=== PATIENT | female | born 1970 | race Caucasian/White ===

== ENCOUNTER 2020-06-03 08:24 | Outpatient (REF) | payer OTHER, SELFPAY | END 2020-06-03 08:25 | disposition home or self-care (01) | LOC: HO.LAB 08:24 | PROVIDERS: PCP Internal Medicine; Visit Provider Internal Medicine | DX: Z20.828 Contact with and (suspected) exposure to other viral communicable diseases (principal) | CPT/HCPCS: 87635 ==

== ENCOUNTER 2020-06-23 15:31 | Outpatient (REF) | payer OTHER, SELFPAY ==
--- NOTE | 2020-06-23 15:33 | MM_ITS ---
EXAMINATION: MM SCREENING DIGITAL BREAST TOMOSYNTHESIS, BILATERAL CLINICAL INFORMATION: Screening. Asymptomatic. The lifetime risk of breast cancer based on the Tyrer-Cuzick Model is 12.4%. COMPARISON: Mammography: 02/04/2019 and studies dating back to 06/20/2016. TECHNIQUE: Digital breast tomosynthesis is performed in both the craniocaudal and mediolateral oblique views along with computer-aided detection (CAD). Synthesized 2D images are generated from the tomosynthesis. FINDINGS: The breasts are heterogeneously dense, which may obscure small masses (ACR BI-RADS breast composition Category c). There is a stable parenchymal pattern of the right breast without new abnormal dominant mass or suspicious grouping of microcalcifications. Within the deep upper outer aspect of the left breast, there is a developing region of architectural distortion lying approximately 6 cm from the nipple. MM/MM tomosynthesis screening BI IMPRESSION: Region of developing architectural distortion deep upper outer aspect of the left breast for which spot compression views and possible ultrasound are recommended. ASSESSMENT: BI-RADS 0: Incomplete - Need Additional Imaging Evaluation RECOMMENDATION: 1. Additional views of the left breast. 2. Targeted ultrasound if warranted after review of the additional views. 3. Radiology department staff will contact the patient for additional imaging. This patient's information was entered into a reminder system with a target due date for their next mammogram.
== END 2020-06-23 15:32 | disposition home or self-care (01) ==
LOC: HO.MAMMO 15:31
PROVIDERS: Visit Provider Internal Medicine
DX: Z12.31 Encounter for screening mammogram for malignant neoplasm of breast (principal)
CPT/HCPCS: 77063; 77067

== ENCOUNTER 2020-06-30 15:04 | Outpatient (REF) | payer OTHER, SELFPAY ==
--- NOTE | 2020-06-30 15:09 | MM_ITS ---
EXAMINATION: MM DIAGNOSTIC DIGITAL, LEFT CLINICAL INFORMATION: Call back for density at left breast upper outer aspect. COMPARISON: Mammography: 06/23/2020 and studies dating back to 06/20/2016. TECHNIQUE: Digital mammography is performed in the following views: Exaggerated craniocaudal and mediolateral oblique views of the left breast. FINDINGS: The breasts are heterogeneously dense, which may obscure small masses (ACR BI-RADS breast composition Category c). There is a persistent region of architectural distortion within the upper outer aspect of the left breast approximately 6 cm from the nipple. This measures approximately 1.3 cm in diameter. A radial scar or malignancy cannot be excluded. Ultrasound of the left breast upper outer aspect and the axilla was then performed with no abnormal cystic or solid mass identified and no region of distal sound shadowing identified. Stereotactic core biopsy would be recommended since no correlate lesion on ultrasound is identified. If patient is of high risk then MRI could be considered. Results are discussed with the patient at time of visit. Breast center patient navigator will call referring provider's office with the above recommendation. MM/MM added views LT IMPRESSION: Persistence of region of architectural distortion within the upper outer aspect of the left breast for which stereotactic core biopsy is recommended since no ultrasound correlate was appreciated. ASSESSMENT: BI-RADS 4: Suspicious RECOMMENDATION: Stereotactic core biopsy left breast. This patient's information was entered into a reminder system with a target due date for their next mammogram.
--- NOTE | 2020-06-30 15:09 | US_ITS ---
EXAMINATION: US DIAGNOSTIC ULTRASOUND BREAST, LEFT CLINICAL INFORMATION: Region of architectural distortion deep upper outer aspect of the left breast.. COMPARISON: Mammography of same day and studies dating back to June 20, 2016. TECHNIQUE: Ultrasound of the breast is performed with real-time hernández scale imaging and color Doppler. FINDINGS: Ultrasound of the left breast upper outer aspect and the axilla was then performed with no abnormal cystic or solid mass identified and no region of distal sound shadowing identified. Stereotactic core biopsy would be recommended since no correlate lesion on ultrasound is identified. If patient is of high risk then MRI could be considered. Results are discussed with the patient at time of visit. Breast center patient navigator will call referring provider's office with the above recommendation. US/US breast LT limited IMPRESSION: Persistence of region of architectural distortion within the upper outer aspect of the left breast for which stereotactic core biopsy is recommended since no ultrasound correlate was appreciated. ASSESSMENT: BI-RADS 4: Suspicious RECOMMENDATION: Stereotactic core biopsy left breast.
== END 2020-06-30 15:05 | disposition home or self-care (01) ==
LOC: HO.MAMMO 15:04
PROVIDERS: PCP Internal Medicine; Visit Provider Internal Medicine
DX: R92.8 Other abnormal and inconclusive findings on diagnostic imaging of breast (principal)
CPT/HCPCS: 76642; 77065

== ENCOUNTER → 2020-07-06 14:42 | Outpatient (BNVA) | payer OTHER, SELFPAY | PROVIDERS: PCP Internal Medicine; Referring Provider Internal Medicine; Visit Provider Surgery | DX: Z76.89 Persons encountering health services in other specified circumstances (principal) ==

== ENCOUNTER 2020-07-09 07:53 | Outpatient (REF) | payer OTHER, SELFPAY ==
--- NOTE | 2020-07-09 07:57 | MM_ITS ---
EXAMINATION: STEREOTACTIC TOMOSYNTHESIS-GUIDED VACUUM-ASSISTED BREAST BIOPSY, LEFT SPECIMEN RADIOGRAPH, LEFT POST PROCEDURE DIGITAL MAMMOGRAM, LEFT CLINICAL INFORMATION: Region of architectural distortion deep upper outer aspect of the left breast. No ultrasound correlate. COMPARISON: June 30, 2020 and studies dating back to June 20, 2016. TECHNIQUE/PROCEDURE: Informed consent was obtained from the patient after discussion of the benefits, risks, and alternatives to biopsy today. Patient appeared to understand. Gave opportunity for questions. Patient signed consent form. BIOPSY TABLE: [employer]one Biopsy System. LESION: Region of architectural distortion upper outer aspect left breast. LOCAL ANESTHESIA: 8 mL 1% lidocaine; 20 mL 1% lidocaine with epinephrine. DERMATOTOMY: Single skin yanci dermatotomy performed. NEEDLE: [employer] 9-gauge vacuum assisted core biopsy device. APPROACH: Lateral. TARGETING: Digital breast tomosynthesis used for targeting. CORES: 13. CLIP: [employer] Barrel-shaped marker. SPECIMEN RADIOGRAPH: Specimen radiograph is taken in separate room using digital mammography. There are noted to be a few calcifications within some of the samples which were then segregated out. POST PROCEDURE UNILATERAL DIGITAL MAMMOGRAM: The post biopsy mammogram is performed in separate room using separate digital mammography equipment from the biopsy procedure. Exaggerated craniocaudal and 90 degree mediolateral views are obtained. The breasts are heterogeneously dense, which may obscure small masses (breast composition category: c). The clip marker is in position. No gross hematoma. The patient tolerated the procedure well. No immediate complications. Home instructions reviewed with the patient. Final pathology results are pending. MM/MM stereotactic biopsy LT IMPRESSION: 1. Digital tomosynthesis-guided core biopsy left breast with clip placement. 2. Specimen radiograph taken and post procedure mammogram. There is satisfactory positioning of the biopsy clip. 3. Final pathology results pending. An addendum report will be issued.
== END 2020-07-09 07:54 | disposition home or self-care (01) ==
LOC: HO.MAMMO 07:53
PROVIDERS: PCP Internal Medicine; Visit Provider Surgery
DX: R92.8 Other abnormal and inconclusive findings on diagnostic imaging of breast (principal)
CPT/HCPCS: 19283; 88305; A4648

== ENCOUNTER 2020-08-04 06:48 | Day surgery (SDC) | payer OTHER, SELFPAY ==
[2020-07-30 09:35] VITALS: BMI 22.3
--- NOTE | 2020-08-03 12:15 | HO.ANESPROP2 ---
Documented by User: Yoselin Perez 08/03/20 12:16 HPI - Anesthesia Eval Consult details Narrative: 49yo F for Breast Biopsy Needle Localization, LEFT PMFSH Past Medical History Medical History (Updated 08/04/20 @ 07:59 by Jackelin Banks) Breast lesion on mammography History of cervical cancer History of endometriosis History of osteopenia PONV (postoperative nausea and vomiting) Postmenopausal Family History Family History Maternal Grandmother History of breast cancer, Onset Age: 70 Maternal Grandfather No problems noted. Surgical History Surgical History History of colposcopy History of exploratory laparotomy Social History Social History Are you a primary client care representative to a significant other at home: No Do you presently have visiting nurse or other home services: No Smoking Status: Never smoker Use of substances other than those prescribed or required for medical reasons: No Have you been hit, kicked, punched, or otherwise hurt by someone within the past year? If so, by whom?: No Advance Directives: No Advance Directives Information Provided: No Advance Directives on File: No Recently lost weight without trying: No Meds Allergies Allergy/AdvReac Type Severity Reaction Status Date / Time No Known Allergies Allergy Verified 07/06/20 15:26 Home Medications Medication Instructions Recorded Confirmed Type multivitamin,yp-zqlklbrx-OJ capsule 1 cap PO DAILY 07/06/20 07/30/20 History calcium 500 mg PO DAILY 07/30/20 07/30/20 History Exam Exam Date and Time: August 03, 2020 1215 Height,Weight and Vital Signs: Height 5 ft 4 in Weight 58.967 kg Assessment and Plan Assessment Anesthesia Assessment: Chart Reviewed Documented by User: Jackelin Banks 08/04/20 08:00 PMFSH Past Medical History Medical History (Updated 08/04/20 @ 07:59 by Jackelin Banks) Breast lesion on mammography History of cervical cancer History of endometriosis History of osteopenia PONV (postoperative nausea and vomiting) Postmenopausal Family History Family History Maternal Grandmother History of breast cancer, Onset Age: 70 Maternal Grandfather No problems noted. Family history of problems with anesthesia: No Surgical History Surgical History History of colposcopy History of exploratory laparotomy History of Problems with Anesthesia: Yes (PONV) Social History Social History Are you a primary client care representative to a significant other at home: No Do you presently have visiting nurse or other home services: No Smoking Status: Never smoker Use of substances other than those prescribed or required for medical reasons: No Have you been hit, kicked, punched, or otherwise hurt by someone within the past year? If so, by whom?: No Advance Directives: No Advance Directives Information Provided: No Advance Directives on File: No Recently lost weight without trying: No Meds Allergies Allergy/AdvReac Type Severity Reaction Status Date / Time No Known Allergies Allergy Verified 07/06/20 15:26 Home Medications Medication Instructions Recorded Confirmed Type multivitamin,qd-ujoipxzs-NR capsule 1 cap PO DAILY 07/06/20 07/30/20 History calcium 500 mg PO DAILY 07/30/20 07/30/20 History Exam Height,Weight and Vital Signs: Vital Signs Temp Pulse Resp BP Pulse Ox 08/04/20 07:11 97.3 F 78 18 127/75 100 Airway Mallampati Class: I TM Dist: >3cm Neck ROM: Full Loose/Missing/Broken Teeth: No (Bonded frint) Heart: RRR Lungs: CTAB Assessment and Plan Assessment Anesthesia Assessment: Anesthesia Plan Discussed and Chart Reviewed Final Anesthetic Review NPO: Yes ASA Class: I Final Preanesthetic Review: No Changes in Pt Med Stat, Meds/Allgs Chart Reviewed, Consent Obtained/Reviewed and Anes Risks/Benef Reviewed Patient Risk: Low Procedure Risk: Low Anesthetic Plan Anesthetic Plan: GA Disposition: Standard PACU
[2020-08-04] VITALS (8 sets, daily range): BP systolic 116–132; BP diastolic 63–75; PULSE 54–78; RESP 12–18; TEMP 36.3–36.7; O2SAT 99–100
--- NOTE | 2020-08-04 06:52 | MM_ITS ---
EXAMINATION: MM MAMMOGRAM GUIDED NEEDLE LOCALIZATION BREAST, LEFT MM NEEDLE LOCALIZATION SPECIMEN FROM THE LEFT BREAST CLINICAL INFORMATION: The pathology result from left breast biopsy is radial scar. Excision anticipated. Wire localization requested. COMPARISON: Previous studies were reviewed. TECHNIQUE NEEDLE LOC: Proper informed consent is obtained from the patient after discussion of the procedure, potential risks and complications, and alternatives including declining the procedure today. Patient was given an opportunity for questions. The patient appeared to understand. The patient consented to the procedure and signed the consent form. GUIDANCE: Digital mammography. APPROACH: Lateral Medial. TARGET: Tissue marker. ANESTHESIA: lidocaine 1%: 5 mL. LOCALIZATION MARKER: [place] [employer]. The skin is prepped and local anesthesia administered. The needle is positioned and position assessed with mammography. The wire is hooked into position. [place] needle protector placed. The patient tolerated the procedure well and had no immediate complication. TECHNIQUE SPECIMEN RADIOGRAPH: Imaging of the excised specimen is performed using digital mammography in 1 view. FINDINGS SPECIMEN RADIOGRAPH: The specimen shows the needle and hookwire are present. The biopsy marker clip is present. No definite calcifications. Results were called to Dr. Bailey Mckeon in the operating room at the time of imaging by Dr. Mandujano. MM/MM needle loc LT IMPRESSION: 1. No immediate complication following post left breast needle localization with wire hooked into position. 2. Post operative specimen radiograph obtained.
[2020-08-04] MEDS: Lactated Ringers 1,000 ML 100 ML IVCONT (07:10)
--- NOTE | 2020-08-04 07:24 | MHC.SHP ---
Pre-Procedural Eval Section A The patient is an INPATIENT: No Changes since office visit: Yes Patient answered all questions; No Cold of Flu in the past 2 weeks, No New Medical Problems and No Changes in Medication The History & Physical has been completed within 30 days and I have reviewed it.: Yes Section B Chief Complaint: Breast lesion on mammography (radial scar) Allergies: Allergies Allergy/AdvReac Type Severity Reaction Status Date / Time No Known Allergies Allergy Verified 07/06/20 15:26 Plan Patient has been examined and remains a candidate for the planned procedure
--- NOTE | 2020-08-04 08:17 | PC.NURSE ---
pt to [facility]
[2020-08-04] MEDS: ceFAZolin Sodium/Dextrose,Iso 2 GM/50 ML PIGGYBACK IV (08:18)
[2020-08-04] MEDS: Scopolamine 1.5 MG PATCH.TD.3 TRANSDERMA (08:18)
--- NOTE | 2020-08-04 11:15 | W.PM.OPN ---
Operative Note Operative Note Date of Service: 08/04/20 Narrative: Preoperative diagnosis: Radial scar left breast Postoperative diagnosis: Same. Procedure: left breast biopsy with needle localization Label Rewinder: Raven Justin PA-C Anesthesia: General, laryngeal mask Estimated blood loss: 10 cc Specimen: left breast tissue Other findings: Re-x-ray of excised tissue revealed that the clip was contained within the specimen Indications: This is a 49-year-old female with a finding of architectural distortion on mammograms. Stereotactic biopsy revealed a radial sclerosing lesion and excision is planned for further evaluation. Procedure in detail: Patient in the supine position after placement of a localizing needle and wire and after induction of adequate general anesthesia, time-out procedure was performed. 2 g of cefazolin were infused for antibiotic prophylaxis. The left breast and localizing needle and exposed wire were prepped with ChloraPrep and were draped sterilely. Incision line was marked on the skin in a transverse fashion and approximately 03:00 o'clock laterally extending through the needle insertion site. Skin and subcutaneous tissues were infiltrated with local anesthetic. Deeper breast tissues were also infiltrated with local anesthetic. Transverse incision was made through the needle insertion site was carried into the subcutaneous tissues. Bleeding was controlled using the electrosurgical pencil. Skin flaps were raised circumferentially. The tissue surrounding the localizing needle and wire was then excised circumferentially. In the process, a hematoma cavity was entered. This was located slightly inferiorly and anteriorly. The entire cavity was excised. Once the specimen was mobilized along the anterior, superior and inferior aspect, the anterior aspect was marked with a looped suture. Remaining attachments were then divided and additional marking stitches were placed. The specimen was sent for re-x-ray which confirmed that the biopsy clip was contained within the specimen. The wound was copiously irrigated with saline solution and was inspected for bleeding. Bleeding was controlled using the electrosurgical pencil. The wound was again irrigated and inspected for bleeding. No further bleeding was seen. Additional local anesthetic infiltration was carried out. The wound was then closed with interrupted deep and superficial subcutaneous sutures of 3-0 Polysorb. Skin was closed using a running subcuticular suture of 4-0 Polysorb. Steri-Strips dry sterile dressings were applied. She tolerated the procedure well and was transported to the recovery room in stable condition. There were no immediate complications. Sponge and sharp counts were correct.
[2020-08-04] MEDS: Acetaminophen 325 MG TABLET 650 MG PO (11:46)
--- NOTE | 2020-08-04 12:56 | HO.POSTANES ---
Post Anesthesia Evaluation Post Anesthesia Evaluation Vital Signs: Vital Signs Temp Pulse Resp BP Pulse Ox 08/04/20 12:10 98.1 F 56 116/64 100 08/04/20 11:55 57 123/63 99 08/04/20 11:40 55 16 132/68 100 08/04/20 11:25 61 18 127/67 100 08/04/20 11:20 54 16 131/68 100 08/04/20 11:15 60 16 116/68 100 08/04/20 11:10 98.1 F 68 12 100 08/04/20 07:11 97.3 F 78 18 127/75 100 Anesthesia: General LMA Mental Status: Awake Pain Control: Satisfactory Nausea/Vomiting: None Hydration: Adequate Anesthesia-Related Issues: No Anes. Related Issues
== END 2020-08-04 12:35 | disposition home or self-care (01) ==
PROVIDERS: PCP Internal Medicine; Visit Provider Surgery
DX: N60.22 Fibroadenosis of left breast (principal); N64.89 Other specified disorders of breast; Z85.41 Personal history of malignant neoplasm of cervix uteri; M85.80 Other specified disorders of bone density and structure, unspecified site
CPT/HCPCS: 19125; 19281; 88307; 88329; A4648; J0690; J1100; J2250; J2405; J3010

== ENCOUNTER 2021-01-25 14:21 | Outpatient (REF) | payer OTHER, SELFPAY ==
--- NOTE | ~2021-01-25 | MM_ITS ---
EXAMINATION: MM DIAGNOSTIC DIGITAL BREAST TOMOSYNTHESIS, LEFT CLINICAL INFORMATION: History left upper outer quadrant radial scar on stereotactic biopsy 07/09/2020, status post open surgical biopsy 08/04/2020. First imaging left breast since surgery. COMPARISON: Mammography: 06/23/2020, 06/30/2020, 07/09/2020, 08/04/2020, 02/04/2019 TECHNIQUE: Digital breast tomosynthesis is performed in both the craniocaudal and mediolateral oblique views along with computer-aided detection (CAD). Synthesized 2D images are generated from the tomosynthesis. Additional magnification left CC and magnification left ML views are obtained. FINDINGS: The breasts are heterogeneously dense, which may obscure small masses (ACR BI-RADS breast composition Category c). Breast tissue composition borders on average fibroglandular. There are postsurgical changes consistent with the excisional biopsy upper outer quadrant. There is no interval mass or suspicious architectural changes or abnormal calcifications. A few punctate calcifications are again seen mid central 9:00 position similar to prior studies. The axilla and skin contours are unremarkable. Results are discussed with the patient at time of visit. MM/MM tomosynthesis diagnostic LT IMPRESSION: No mammographic evidence of malignancy. Expected postsurgical changes. ASSESSMENT: BI-RADS 2: Benign RECOMMENDATION: Routine annual mammography screening. This patient's information was entered into a reminder system with a target due date for their next mammogram.
== END 2021-01-25 14:22 | disposition home or self-care (01) ==
LOC: HO.MAMMO 14:21
PROVIDERS: PCP Internal Medicine; Visit Provider Surgery
DX: R92.8 Other abnormal and inconclusive findings on diagnostic imaging of breast (principal)
CPT/HCPCS: 77061; 77065

== ENCOUNTER 2021-07-06 14:31 | Outpatient (REF) | payer OTHER, SELFPAY ==
--- NOTE | ~2021-07-06 | MM_ITS ---
EXAMINATION: MM SCREENING DIGITAL BREAST TOMOSYNTHESIS, BILATERAL CLINICAL INFORMATION: Screening. Asymptomatic. Prior history radial scar upper outer left breast on stereotactic biopsy 07/09/2020, status post open surgical biopsy 08/04/2020 (biopsy site changes, columnar cell changes and usual ductal hyperplasia; no residual radial scar, no atypia or malignancy). The lifetime risk of breast cancer based on the Tyrer-Cuzick Model is 11%. COMPARISON: Mammography: 01/25/2021, 08/04/2020, 07/09/2020, 06/30/2020, 06/23/2020, 02/04/2019 TECHNIQUE: Digital breast tomosynthesis is performed in both the craniocaudal and mediolateral oblique views along with computer-aided detection (CAD). Synthesized 2D images are generated from the tomosynthesis. FINDINGS: The breasts are heterogeneously dense, which may obscure small masses (ACR BI-RADS breast composition Category c). There are no significant masses, abnormal calcifications, or other abnormalities. No developing density. No significant change. MM/MM tomosynthesis screening BI IMPRESSION: No mammographic evidence of malignancy. ASSESSMENT: BI-RADS 2: Benign RECOMMENDATION: Routine annual mammography screening. This patient's information was entered into a reminder system with a target due date for their next mammogram.
== END 2021-07-06 14:32 | disposition home or self-care (01) ==
LOC: HO.MAMMO 14:31
PROVIDERS: PCP Internal Medicine; Visit Provider Internal Medicine
DX: Z12.31 Encounter for screening mammogram for malignant neoplasm of breast (principal)
CPT/HCPCS: 77063; 77067

== ENCOUNTER 2021-10-03 06:48 | Outpatient (REF) | payer OTHER, SELFPAY ==
[2021-10-03 06:58] LABS: MANUAL DIFF FLAG NO
[2021-10-03 07:26] LABS: Basophils Percent Auto 0.5 % (0-2); Eosinophils Absolute Auto 0.1 X10*3/uL (0.0-0.4); Eosinophils Percent Auto 2.3 % (0-4); Hemoglobin 12.7 g/dl (12.0-16.0); Imm Gran Abs Auto 0.03 X10*3/uL (0.00-0.03); Imm Gran Pct Auto 0.5 % (0.0-0.4); Lymphocytes Absolute Auto 1.9 X10*3/uL (1.2-4.9); Lymphocytes Percent Auto 31.8 % (20-40); Mean Corpuscular HGB Conc 32.6 g/dl (31.0-35.0); Mean Corpuscular Hemoglobin 30.4 pg (27.0-33.0); Mean Corpuscular Volume 93.3 fL (80.0-98.0); Mean Platelet Volume 9.3 fL (9.4-12.3); Monocytes Absolute Auto 0.6 X10*3/uL (0.1-1.2); Monocytes Percent Auto 10.4 % (2-11); Neutrophils Absolute Auto 3.3 x10*3/uL (2.0-8.3); Neutrophils Percent Auto 54.5 % (45-73); Platelet Count 338 X10*3/uL (160-400); Red Blood Count 4.18 X10*6/uL (4.20-5.50); Red Cell Distribution Width 12.9 % (11.0-16.0); White Blood Count 6.1 X10*3/uL (4.8-10.8)
[2021-10-03 08:06] LABS: Alanine Aminotransferase 12 U/L (0-31); Albumin Level 4.3 g/dL (3.5-5.0); Alkaline Phosphatase 97 U/L (39-117); Anion Gap 10 (12-20); Aspartate Amino Transferase 20 U/L (5-31); Bilirubin Total 0.9 mg/dL (0.0-1.0); Blood Urea Nitrogen 21 mg/dL (9-16); Calcium 9.7 mg/dL (8.4-10.2); Carbon Dioxide 27 mmol/L (22-29); Chloride 108 mmol/L (96-108); Cholesterol 200 mg/dL; Estimated Glomerular Filt Rate > 60; Glucose Fasting 88 mg/dL (60-99); HDL Cholesterol 59 mg/dL; LDL Cholesterol Calculated 114 mg/dl; Sodium 141 mmol/L (135-145); Triglycerides 139 mg/dL
== END 2021-10-03 06:49 | disposition home or self-care (01) ==
LOC: HO.LAB 06:48
PROVIDERS: PCP Internal Medicine; Visit Provider Internal Medicine
DX: Z00.01 Encounter for general adult medical examination with abnormal findings (principal); N95.1 Menopausal and female climacteric states
CPT/HCPCS: 36415; 80053; 80061; 84443; 85025

== ENCOUNTER → 2021-11-15 14:29 | Outpatient (REF) | payer OTHER, SELFPAY ==
--- NOTE | 2021-11-15 14:33 | HM_ITS ---
* Total monitoring time 5 days and 23 hours. * Underlying rhythm is sinus. Average rate 77/Min. Range 43 to 145/Min. * No atrial fibrillation or flutter or AV blocks or pauses. * Rare supraventricular ectopy with minimal burden. * Rare ventricular ectopy with minimal burden. * No patient events. MTDD
== END ==
LOC: HO.CARD 14:29
PROVIDERS: Visit Provider Internal Medicine Cardiovascular Disease
DX: R00.2 Palpitations (principal)
CPT/HCPCS: 93242

== ENCOUNTER 2022-07-12 15:11 | Outpatient (REF) | payer OTHER, SELFPAY ==
--- NOTE | ~2022-07-12 | MM_ITS ---
EXAMINATION: MM SCREENING DIGITAL BREAST TOMOSYNTHESIS, BILATERAL CLINICAL INFORMATION: Screening. Asymptomatic. History left radial scar stereotactic biopsy 07/09/2020, status post excision 08/04/2020. Due for yearly. The lifetime risk of breast cancer based on the Tyrer-Cuzick Model is 12%. COMPARISON: Mammography: 07/06/2021, 01/25/2021, 08/04/2020, 07/09/2020, 06/30/2020, 06/23/2020, 02/04/2019 TECHNIQUE: Digital breast tomosynthesis is performed in both the craniocaudal and mediolateral oblique views along with computer-aided detection (CAD). Synthesized 2D images are generated from the tomosynthesis. FINDINGS: There are scattered areas of fibroglandular density (ACR BI-RADS breast composition Category b). Breast tissue composition borders on average fibroglandular. There are no significant masses, abnormal calcifications, or other abnormalities. There is no interval architectural abnormality or developing density. The axilla are unremarkable. No significant changes. MM/MM tomosynthesis screening BI IMPRESSION: No mammographic evidence of malignancy. ASSESSMENT: BI-RADS 1: Negative RECOMMENDATION: Routine annual mammography screening. This patient's information was entered into a reminder system with a target due date for their next mammogram.
== END 2022-07-12 15:12 | disposition home or self-care (01) ==
LOC: HO.MAMMO 15:11
PROVIDERS: Visit Provider Internal Medicine
DX: Z12.31 Encounter for screening mammogram for malignant neoplasm of breast (principal)
CPT/HCPCS: 77063; 77067

== ENCOUNTER 2023-02-22 10:48 | Day surgery (SDC) | payer OTHER, SELFPAY ==
--- NOTE | 2023-02-20 14:48 | P.CONAN_ITS ---
Documented by User: Yoselin Perez NP 02/20/23 14:49 HPI - Anesthesia Eval Consult details Narrative: 52yo F for Colonoscopy PMFSH Active Problems Active Problems: All Active Problems (Updated 11/09/21 @ 08:22 by Mireya Kuhn MD) Colon cancer screening (Acute) Encounter for general adult medical examination with abnormal findings (Acute) Hot flash, menopausal (Acute) Menopause (Acute) Postmenopausal (Acute) Breast lesion on mammography (Acute) Past Medical History Medical History (Updated 11/09/21 @ 08:22 by Mireya Kuhn MD) Breast lesion on mammography History of cervical cancer History of endometriosis History of osteopenia Palpitations PONV (postoperative nausea and vomiting) Postmenopausal Family History Family History Maternal Grandmother History of breast cancer, Onset Age: 70 Maternal Grandfather No problems noted. Other Substance use disorder Family history of problems with anesthesia: No Surgical History Surgical History History of colposcopy History of exploratory laparotomy History of Problems with Anesthesia: Yes (PONV) Social History Social History Housing: House Are you a primary rn transitional care to a significant other at home: No Do you presently have visiting nurse or other home services: No Patient Tobacco Use Status: Never used Tobacco Use of substances other than those prescribed or required for medical reasons: Yes Substance Use Frequency: Occasionally Advance Directives: No Advance Directives Information Provided: Yes Recently lost weight without trying: No Current occupational status: employed Meds Allergies Allergy/AdvReac Type Severity Reaction Status Date / Time No Known Allergies Allergy Verified 09/20/21 14:15 Exam Exam Date and Time: February 20, 2023 949 Assessment and Plan Assessment Anesthesia Assessment: Chart Reviewed Final Anesthetic Review Family History of Problems with Anesthesia: No History of Problems with Anesthesia: Yes (PONV) Documented by User: Ellyn Bess MD 02/22/23 12:03 HPI - Anesthesia Eval Consult details Narrative: 52yo F for Colonoscopy screening ho pvc's cardiac rios negative PMFSH Past Medical History Medical History (Updated 11/09/21 @ 08:22 by Mireya Kuhn MD) Breast lesion on mammography History of cervical cancer History of endometriosis History of osteopenia Palpitations PONV (postoperative nausea and vomiting) Postmenopausal Family History Family History Maternal Grandmother History of breast cancer, Onset Age: 70 Maternal Grandfather No problems noted. Other Substance use disorder Surgical History Surgical History History of colposcopy History of exploratory laparotomy Social History Social History Housing: House Are you a primary rn transitional care to a significant other at home: No Do you presently have visiting nurse or other home services: No Patient Tobacco Use Status: Never used Tobacco Use of substances other than those prescribed or required for medical reasons: Yes Substance Use Frequency: Occasionally Advance Directives: No Advance Directives Information Provided: Yes Recently lost weight without trying: No Current occupational status: employed Meds Allergies Allergy/AdvReac Type Severity Reaction Status Date / Time No Known Allergies Allergy Verified 09/20/21 14:15 Exam Airway Mallampati Class: I TM Dist: >3cm Neck ROM: Full Heart: rr Lungs: cts Assessment and Plan Assessment Anesthesia Assessment: Anesthesia Plan Discussed Final Anesthetic Review NPO: Yes ASA Class: I Final Preanesthetic Review: No Changes in Pt Med Stat, Meds/Allgs Chart Reviewed, Consent Obtained/Reviewed and Anes Risks/Benef Reviewed Patient Risk: Low Procedure Risk: Low Anesthetic Plan Anesthetic Plan: MAC: and Agree w/ Assess. and Plan Disposition: Standard PACU
[2023-02-22 11:43] VITALS: BP 123/67; PULSE 64; RESP 16; TEMP 36.8; O2SAT 100; BMI 21.8
--- NOTE | 2023-02-22 12:57 | MHC.SHP ---
Pre-Procedural Eval Section A Date of Service: 02/22/23 Section B Chief Complaint: Encounter for screening for malignant neoplasm Relevant Family History (Specify if Yes): No Relevant Social History: None Present Medications: see Short Stay Collaborative assessment Medical History: No relevant PMH History of Previous Operations: No relevant previous surgery Allergies: Allergies Allergy/AdvReac Type Severity Reaction Status Date / Time No Known Allergies Allergy Verified 09/20/21 14:15 Review of Systems Review of Systems Comment: Ten point ROS negative Exam Exam Comment: Gen appear: No acute distress HEENT: no icterus Chest: No overt resp distress Abd: soft, nontender, nondistended Psych: Stable affect, answering questions appropriately Neuro: A/Ox3 noted to move all extremities spontaneously Ext: no peripheral edema Plan Diagnosis/Plan: Unchanged I have reviewed the history and physical and performed a pertinent physical examination on my patient. No changes have occurred unless specified. Time Spent With Patient Time: Total time managing care of this patient today ____ minutes.
--- NOTE | 2023-02-22 12:57 | P.OP_ITS ---
Operative Note Operative Note Date of Service: 02/22/23 Narrative: Procedure: Colonoscopy Indication: Screening Endoscopist: Lacy Santos MD Anesthesia Provider: Latrice Rivera CRNA Anesthesia type: MAC General Anesthesia Instrument: Olympus [id number]-[id number] Consent: Indication, risks vs benefits, and alternatives were discussed with the patient who gave written informed consent to proceed. EKG, pulse, pulse oximetry and blood pressure were monitored throughout the procedure. Please see anesthesia flowsheet. Procedure: The patient was brought to the procedure room and placed in the left lateral decubitus position. IV medications were administered by the anesthesia provider in attendance. A digital rectal exam was performed which was normal. A distal attachment cap was affixed to the tip of the scope and the colonoscope was then inserted through the anus and advanced through the colon to the cecum at 75 cm,and terminal ileum. Mucosa was carefully examined under high definition white light as the instrument was slowly withdrawn in a retrograde panoramic fashion. Retroflexion was performed in rectum. The procedure was not difficult. There were no immediate obvious complications. The quality of the prep was BBPS: 3+3+3 = excellent Withdrawal time 8 minutes. Limitations: No limitations. Findings: Mucosa: Normal to cecum and terminal ileum. Protruding lesions: * Medium internal hemorrhoids without stigmata of recent bleeding. Excavated lesions: * Multiple small and medium mouthed diverticula of left sided colon. Impression: 1. Normal colon and terminal ileum mucosa 2. Internal hemorrhoids 3. Diverticulosis Recommendations: - Repeat colonoscopy in 10 years for asymptomatic colon cancer screening - Increase fiber intake
[2023-02-22 13:36] VITALS: BP 103/50; PULSE 57; RESP 16; TEMP 36.4; O2SAT 99
[2023-02-22 13:51] VITALS: BP 130/66; PULSE 60; RESP 16; O2SAT 100
[2023-02-22 14:06] VITALS: BP 133/62; PULSE 54; RESP 16; TEMP 36.3; O2SAT 100
== END 2023-02-22 14:24 | disposition home or self-care (01) ==
PROVIDERS: PCP Internal Medicine; Visit Provider Internal Medicine
PROC: 0DJD8ZZ Inspection of Lower Intestinal Tract, Via Natural or Artificial Opening Endoscopic (ICD-10-PCS; CPT 45378; principal; 2023-02-22 12:40)
DX: Z12.11 Encounter for screening for malignant neoplasm of colon (principal); K57.30 Diverticulosis of large intestine without perforation or abscess without bleeding; K64.8 Other hemorrhoids
CPT/HCPCS: 45378; J1100; J2250; J2405

== ENCOUNTER 2023-07-06 14:26 | Outpatient (AMB) | payer OTHER, SELFPAY ==
--- NOTE | 2023-07-06 14:34 | MHC.PC.OV ---
Vital Signs 07/06/23 14:35 Height 5 ft 4 in Weight 131 lb 8 oz BMI 22.6 BP 100/60 Blood Pressure Location Rt brachial Position Sitting Pulse 68 Pulse Source Pulse Oximeter Pulse Oximetry (%) 99 Oxygen Delivery Method Room Air Intake Visit Reasons: annual PE Allergies No Known Allergies Allergy (Verified 07/06/23 14:36) Medication List - Last Reconciled 07/06/23 by Mireya Kuhn MD omeprazole 20 mg PO DAILY Tobacco use date assessed: 07/06/23 Dental Screening Dental Screen Date: 07/06/23 Did you have a dental visit in the last 12 months?: Yes Did you have a dental problem in the last 6 months where you did not have access to dental care?: No Was dental information given to patient?: Patient has dentist HPI annual PE HPI Details Patient is 52-year-old female came in for physical examination Patient had colonoscopy in summer of this year by Dr. Santos [facility] she will have next 1 in 10 years Mammogram appointment coming [facility] Patient will also book appointment with her OBGYN. Continued to have palpitations off and on I have added TSH 2 her lab She will be seeing Dr. Herrera in August for re-evaluation Patient had Holter monitor last year which showed some PVCs PFSH Medical History Palpitations Postmenopausal PONV (postoperative nausea and vomiting) History of cervical cancer History of endometriosis History of osteopenia Breast lesion on mammography Surgical History History of exploratory laparotomy History of colposcopy Family History Maternal Grandmother History of breast cancer, Onset Age: 70 Maternal Grandfather No problems noted. Other Substance use disorder Social History Housing: House Are you a primary ambulatory care nurse to a significant other at home: No Do you presently have visiting nurse or other home services: No Patient Tobacco Use Status: Never used Tobacco e-Cigarette/Vaping Use: Never Used Current occupational status: employed Cognitive needs: No Hearing needs: No Vision needs: No Female Reproductive History Menstrual Age of Menarche: 14 Questionnaire PHQ-9 Over the last 2 weeks, how often have you been bothered by any of the following problems? 1. Little interest or pleasure in doing things: not at all 2. Feeling down, depressed, or hopeless: not at all 3. Trouble falling or staying asleep, or sleeping too much: nearly every day 4. Feeling tired or having little energy: several days 5. Poor appetite or overeating: not at all 6. Feeling bad about yourself - or that you are a failure or have let yourself or your family down: not at all 7. Trouble concentrating on things, such as reading the newspaper or watching television: not at all 8. Moving or speaking so slowly that other people could have noticed. Or the opposite - being so fidgety or restless that you have been moving around a lot more than usual: not at all 9. Thoughts that you would be better off or of hurting yourself in some way: not at all Total score: 4 Depression Screening Interpretation: Negative Depression Screening Done: Yes 09885 - PHQ-9 Billing: Yes Source: Developed by Drs. Sukhdeep Malhotra, Melissa Cifuentes, Stephen Bran and colleagues, with an educational rosendo from [employer]. Thrive Questionnaire Date Thrive assessed: 07/06/23 I am a: Patient What is your living situation today?: I have a steady place to live Within the past 12 months, did the food you bought not last and you didn't have the money to get more?: Never true Within the past 12 months, did you worry whether your food would run out before you got money to buy more?: Never true Do you have trouble paying for medicines?: No Do you have trouble getting transportation to medical appointments?: No Do you have trouble paying your heating and electricity bill?: No Do you have trouble taking care of your child, family member or friend?: No Do you have trouble with day-to-day activities such as bathing, preparing meals, shopping, managing finances, etc.?: No Are you currently unemployed and looking for a job?: No Are you interested in more education?: No Please select the resources that you would like help with: None Currently or been in a relationship where the following occur: no concerns reported AUDIT C Alcohol Use Questionnaire (AUDIT-C) 1. How often do you have a drink containing alcohol?: 2-3 times a week 2. How many drinks containing alcohol do you have on a typical day when you are drinking?: 3 or 4 3. How often do you have six or more drinks on one occasion?: Never Total Score: 4 Score Reviewed/Action Taken: No RAISA-7 AMB Questionnaire RAISA-7 Date RAISA - 7 assessed: 07/06/23 Feeling nervous, anxious, or on edge: 0 = Not at all Not being able to stop or control worryin = Not at all Worrying too much about different things: 0 = Not at all Trouble relaxin = Not at all Being so restless that it is hard to sit still: 0 = Not at all Becoming easily annoyed or irritable: 1 = Several days Feeling afraid as if something awful might happen: 0 = Not at all Total RAISA-7 score (0-4 normal; 5-9 mild; 10-14 moderate; 15-21 severe): 1 Source: Developed by Drs. Sukhdeep Malhotra, Melissa Cifuentes, Stephen Bran and colleagues, with an educational rosendo from [employer]. RAISA-7 Assessment Billing RAISA-7 Assessment Tool: RAISA-7 Assessment 85371 Review of Systems Const Denies chills, Denies fever(s) and Denies headache(s) Eyes Denies blurry vision ENT Denies headache(s), Denies nasal discharge, Denies nasal obstruction, Denies odynophagia and Denies sinus pain Card Denies chest pain at rest and Denies chest pain with activity Resp Denies cough and Denies hemoptysis GI Denies diarrhea, Denies odynophagia, Denies vomiting and Denies hematemesis Reports as per HPI Musc Denies abnormal gait Skin/Breast Reports as per HPI Neuro Denies Neuro-related abnormal movements, Denies Abnormal speech present, Denies abnormal gait, Denies headache(s) and Denies Sensory deficit (Neuro) Psych Denies mood swings and Denies paranoia Endo Reports as per HPI Zbigniew/Lymph Reports as per HPI Aller/Immun Reports as per HPI Physical exam (Primary Care) Vital Signs: Last Vital Signs Pulse 68 07/06/23 14:35 BP 100/60 07/06/23 14:35 Pulse Ox 99 07/06/23 14:35 Oxygen Delivery Method Room Air 07/06/23 14:35 BMI result Body Mass Index 22.6 Tobacco/Smoking Status: Tobacco use Status Tobacco use date assessed 07/06/23 07/06/23 14:39 Patient Tobacco Use Status Never used Tobacco 07/06/23 14:39 e-Cigarette/Vaping Use Never Used 07/06/23 14:39 Depression Screening Interpretation: Negative Thrive Assessment: Date of Thrive Assessment Date Thrive assessed 09/20/21 07/06/23 14:39 Currently or been in a relationship where the following occur: no concerns reported Const General: cooperative, comfortable and no acute distress Orientation/consciousness: patient oriented x3 HENMT Head: Yes normocephalic and Yes atraumatic Eyes General: appearance normal, both eyes and all related structures Pupils: Equal, round and reactive pupils present EOM: EOMs intact bilaterally Neck Neck: Yes supple Thyroid: Thyroid normal Resp Effort & Inspection: normal respiratory effort and able to speak in complete sentences Auscultation: clear to auscultation bilaterally Cardio Heart sounds: S1 normal heart sound present and S2 normal heart sound present GI Palpation (GI): Soft to palpation and nontender Auscultation: normal bowel sounds General: Yes no CVA tenderness Back/Spine/Pelvis Back: no CVA tenderness Skin General skin exam: elasticity normal and turgor normal Neuro General: patient oriented x3 and gait normal Cranial nerves: Yes Equal, round and reactive pupils present Speech: No Abnormal speech present Sensory Exam: No Sensory deficit (Neuro) Coordination: tandem gait normal and Romberg test negative Extrem General: Yes normal exam except as noted and No edema Assessment and Plan Assessment & Plan (1) Encounter for general adult medical examination with abnormal findings: Code(s): Z00.01 - Encounter for general adult medical examination with abnormal findings (2) History of osteopenia: Code(s): Z87.39 - Personal history of other diseases of the musculoskeletal system and connective tissue (3) Palpitations: Code(s): R00.2 - Palpitations Plan Patient is 52-year-old female came in for physical examination Patient had colonoscopy in summer of this year by Dr. Santos [facility] she will have next 1 in 10 years Mammogram appointment coming [facility] Patient will also book appointment with her OBGYN. Continued to have palpitations off and on I have added TSH 2 her lab She will be seeing Dr. Herrera in August for re-evaluation Patient had Holter monitor last year which showed some PVCs Patient declined flu vaccine Breast exam through OBGYN Orders: Orders Complete Blood Count Auto Diff Today N95.1 - Menopausal and female climacteric states, Z00.01 - Encounter for general adult medical examination with abnormal findings, Z87.39 - Personal history of other diseases of the musculoskeletal system and connective tissue Lipid Panel Today N95.1 - Menopausal and female climacteric states, Z00.01 - Encounter for general adult medical examination with abnormal findings, Z87.39 - Personal history of other diseases of the musculoskeletal system and connective tissue TSH reflex Free T4 Today R00.2 - Palpitations Vitamin D 25-OH (D2 and D3) Today Z87.39 - Personal history of other diseases of the musculoskeletal system and connective tissue Comprehensive [place]. Panel Fast Today N95.1 - Menopausal and female climacteric states, Z00.01 - Encounter for general adult medical examination with abnormal findings, Z87.39 - Personal history of other diseases of the musculoskeletal system and connective tissue Coding Level of Care Code Est Pt Prev Care 40-64y(19427) Diagnoses Encounter for general adult medical examination with abnormal findings Z00.01 History of osteopenia Z87.39 Palpitations R00.2 Additional Codes RAISA-7 Assessment Billing - RAISA-7 Assessment Tool: RAISA-7 Assessment 47315 ([id number])
[2023-07-06 14:35] VITALS: BP 100/60; PULSE 68; O2SAT 99; BMI 22.6
== END 2023-07-06 15:45 | disposition home or self-care (01) ==
PROVIDERS: Visit Provider Internal Medicine
DX: Z00.00 Encounter for general adult medical examination without abnormal findings (principal); Z87.39 Personal history of other diseases of the musculoskeletal system and connective tissue; R00.2 Palpitations
CPT/HCPCS: 99396

== ENCOUNTER 2023-07-16 07:05 | Outpatient (REF) | payer OTHER, SELFPAY ==
[2023-07-16 07:21] LABS: MANUAL DIFF FLAG NO
[2023-07-16 07:45] LABS: Basophils Percent Auto 0.5 % (0-2); Eosinophils Absolute Auto 0.1 X10*3/uL (0.0-0.4); Eosinophils Percent Auto 1.6 % (0-4); Hematocrit 40.7 % (37.0-47.0); Hemoglobin 13.5 g/dl (12.0-16.0); Imm Gran Abs Auto 0.02 X10*3/uL (0.00-0.03); Imm Gran Pct Auto 0.3 % (0.0-0.4); Lymphocytes Absolute Auto 1.6 X10*3/uL (1.2-4.9); Lymphocytes Percent Auto 21.7 % (20-40); Mean Corpuscular HGB Conc 33.2 g/dl (31.0-35.0); Mean Corpuscular Hemoglobin 30.8 pg (27.0-33.0); Mean Corpuscular Volume 92.7 fL (80.0-98.0); Monocytes Absolute Auto 0.7 X10*3/uL (0.1-1.2); Monocytes Percent Auto 9.6 % (2-11); Neutrophils Percent Auto 66.3 % (45-73); Platelet Count 407 X10*3/uL (160-400); Red Blood Count 4.39 X10*6/uL (4.20-5.50); White Blood Count 7.6 X10*3/uL (4.8-10.8)
[2023-07-16 08:32] LABS: Alanine Aminotransferase 12 U/L (0-31); Albumin Level 4.6 g/dL (3.5-5.0); Alkaline Phosphatase 130 U/L (39-117); Anion Gap 13 (12-20); Aspartate Amino Transferase 17 U/L (5-31); Bilirubin Total 0.5 mg/dL (0.0-1.0); Blood Urea Nitrogen 21 mg/dL (9-16); Calcium 10.3 mg/dL (8.4-10.2); Carbon Dioxide 27 mmol/L (22-29); Chloride 106 mmol/L (96-108); Cholesterol 194 mg/dL (<200); Estimated Glomerular Filt Rate > 60; Glucose Fasting 100 mg/dL (60-99); HDL Cholesterol 70 mg/dL (>40); LDL Cholesterol Calculated 109 mg/dL (<100); Potassium 5.5 mmol/L (3.3-5.1); Sodium 140 mmol/L (135-145); Total Protein 8.1 g/dL (6.5-8.0); Triglycerides 76 mg/dL (<150)
[2023-07-16 08:51] LABS: TSH reflex Free T4 0.51 uIU/mL (0.32-4.0)
[2023-07-19 14:14] LABS: Vitamin D 25-OH, D2 <4 ng/mL; Vitamin D 25-OH, D3 35 ng/mL; Vitamin D 25-OH, Total 35 ng/mL (30-100)
== END 2023-07-16 07:06 | disposition home or self-care (01) ==
LOC: HO.LAB 07:05
PROVIDERS: PCP Internal Medicine; Visit Provider Internal Medicine
DX: Z00.01 Encounter for general adult medical examination with abnormal findings (principal); N95.1 Menopausal and female climacteric states; R00.2 Palpitations; Z87.39 Personal history of other diseases of the musculoskeletal system and connective tissue
CPT/HCPCS: 36415; 80053; 80061; 82306; 84443; 85025

== ENCOUNTER 2023-07-18 14:54 | Outpatient (REF) | payer OTHER, SELFPAY | END 2023-07-18 14:55 | disposition home or self-care (01) | LOC: HO.MAMMO 14:54 | PROVIDERS: PCP Internal Medicine; Visit Provider Internal Medicine | DX: Z12.31 Encounter for screening mammogram for malignant neoplasm of breast (principal) | CPT/HCPCS: 77063; 77067 ==

== ENCOUNTER → 2023-07-18 15:15 | Outpatient (BNV) | payer OTHER, SELFPAY | PROVIDERS: PCP Internal Medicine; Visit Provider Radiology Diagnostic Radiology | DX: Z12.31 Encounter for screening mammogram for malignant neoplasm of breast (principal) | CPT/HCPCS: 77063; 77067 ==

== ENCOUNTER 2023-07-25 06:28 | Outpatient (REF) | payer OTHER, SELFPAY ==
[2023-07-25 08:10] LABS: Alanine Aminotransferase 10 U/L (0-31); Albumin Level 4.4 g/dL (3.5-5.0); Alkaline Phosphatase 144 U/L (39-117); Anion Gap 13 (12-20); Aspartate Amino Transferase 16 U/L (5-31); Bilirubin Total 0.5 mg/dL (0.0-1.0); Blood Urea Nitrogen 17 mg/dL (9-16); Calcium 9.5 mg/dL (8.4-10.2); Carbon Dioxide 27 mmol/L (22-29); Chloride 103 mmol/L (96-108); Estimated Glomerular Filt Rate > 60; Glucose Random 80 mg/dL (60-115); Potassium 4.2 mmol/L (3.3-5.1); Sodium 139 mmol/L (135-145)
[2023-07-26 06:58] LABS: Lyme Abs Screen <0.90 index
== END 2023-07-25 06:29 | disposition home or self-care (01) ==
LOC: HO.LAB 06:28
PROVIDERS: PCP Internal Medicine; Visit Provider Internal Medicine
DX: M54.2 Cervicalgia (principal); R79.89 Other specified abnormal findings of blood chemistry
CPT/HCPCS: 36415; 80053; 86617; 86618

== ENCOUNTER 2023-07-31 15:05 | Outpatient (AMB) | payer OTHER, SELFPAY ==
[2023-07-31 15:12] VITALS: BP 118/74; PULSE 89; O2SAT 98; BMI 23.7
--- NOTE | 2023-07-31 15:12 | A.OFFPC_ITS ---
Vital Signs 07/31/23 15:12 Height 5 ft 4 in Weight 138 lb 2 oz BMI 23.7 BP 118/74 Blood Pressure Location Rt brachial Position Sitting Pulse 89 Pulse Source Pulse Oximeter Pulse Oximetry (%) 98 Oxygen Delivery Method Room Air Intake Visit Reasons: Throat concerns~ Allergies No Known Allergies Allergy (Verified 07/31/23 15:12) Medication List - Last Reconciled 07/31/23 by Mireya Kuhn MD omeprazole 20 mg PO DAILY sodium polystyrene sulfonate 15 grams PO DAILY Tobacco use date assessed: 07/31/23 Dental Screening Dental Screen Date: 07/31/23 Did you have a dental visit in the last 12 months?: Yes Did you have a dental problem in the last 6 months where you did not have access to dental care?: No Was dental information given to patient?: Patient has dentist HPI Throat concerns~ HPI Details Patient is a 52-year-old female came in today to be evaluated for pain in her neck Patient says that she has been having that since end of June 27 it was the right side and then left side. She took ibuprofen this morning and is feeling better, however it has been few days and it is not resolving. She also had labs done which showed elevated alkaline phosphatase, we repeated it and it got worse We will repeat it again in a month time For her thyroid I have ordered ultrasound, meanwhile patient was instructed to take ibuprofen [id number] t.i.d. with food for a week. On exam she had no enlarged lymph nodes, throat looks benign, and neck is supple PFSH Medical History Palpitations Postmenopausal PONV (postoperative nausea and vomiting) History of cervical cancer History of endometriosis History of osteopenia Breast lesion on mammography Surgical History History of exploratory laparotomy History of colposcopy Family History Maternal Grandmother History of breast cancer, Onset Age: 70 Maternal Grandfather No problems noted. Other Substance use disorder Social History Housing: House Are you a primary hearing healthcare practitioner to a significant other at home: No Do you presently have visiting nurse or other home services: No Patient Tobacco Use Status: Never used Tobacco e-Cigarette/Vaping Use: Never Used Current occupational status: employed Cognitive needs: No Hearing needs: No Vision needs: No Female Reproductive History Menstrual Age of Menarche: 14 Questionnaire Thrive Questionnaire Date Thrive assessed: 07/06/23 AUDIT C Alcohol Use Questionnaire (AUDIT-C) 1. How often do you have a drink containing alcohol?: 2-3 times a week 2. How many drinks containing alcohol do you have on a typical day when you are drinking?: 3 or 4 3. How often do you have six or more drinks on one occasion?: Never Total Score: 4 Score Reviewed/Action Taken: Yes RAISA-7 AMB Questionnaire RAISA-7 Date RAISA - 7 assessed: 07/06/23 Source: Developed by Drs. Sukhdeep Malhotra, Melissa Cifuentes, Stephen Bran and colleagues, with an educational rosendo from [employer]. Review of Systems Const Denies chills and Denies fever(s) ENT Denies epistaxis and Denies nasal discharge Card Denies chest pain Resp Denies chest congestion, Denies cough and Denies hemoptysis GI Denies diarrhea and Denies nausea Skin/Breast Denies rash Neuro Reports no additional complaints Psych Reports no additional complaints Endo Reports no additional complaints Physical exam (Primary Care) Vital Signs: Last Vital Signs Pulse 89 07/31/23 15:12 BP 118/74 07/31/23 15:12 Pulse Ox 98 07/31/23 15:12 Oxygen Delivery Method Room Air 07/31/23 15:12 BMI result Body Mass Index 23.7 Tobacco/Smoking Status: Tobacco use Status Tobacco use date assessed 07/31/23 07/31/23 15:15 Patient Tobacco Use Status Never used Tobacco 07/31/23 15:15 e-Cigarette/Vaping Use Never Used 07/31/23 15:15 Thrive Assessment: Date of Thrive Assessment Date Thrive assessed 07/06/23 07/31/23 15:15 Const General: cooperative, comfortable and no acute distress Orientation/consciousness: patient oriented x3 HENMT Head: Yes normocephalic Neck Other: Slight discomfort to palpation left thyroid lobe, no enlargement, no lymph nodes felt, neck is supple, throat is benign Neck: Yes supple Resp Effort & Inspection: normal respiratory effort, no cough and no stridor Skin General skin exam: turgor normal Neuro General: patient oriented x3, tone normal and moves all extremities Extrem Right lower extremity: no edema Left lower extremity: no edema Assessment and Plan Assessment & Plan (1) Painful thyroid: Code(s): E07.89 - Other specified disorders of thyroid (2) LFT elevation: Code(s): R79.89 - Other specified abnormal findings of blood chemistry Plan Patient is a 52-year-old female came in today to be evaluated for pain in her neck Patient says that she has been having that since end of June 27 it was the right side and then left side. She took ibuprofen this morning and is feeling better, however it has been few days and it is not resolving. She also had labs done which showed elevated alkaline phosphatase, we repeated it and it got worse We will repeat it again in a month time For her thyroid I have ordered ultrasound, meanwhile patient was instructed to take ibuprofen [id number] t.i.d. with food for a week. On exam she had no enlarged lymph nodes, throat looks benign, and neck is supple Orders: Orders US thyroid Today E07.89 - Other specified disorders of thyroid TSH reflex Free T4 Today E07.89 - Other specified disorders of thyroid, R79.89 - Other specified abnormal findings of blood chemistry Liver Panel Today E07.89 - Other specified disorders of thyroid, R79.89 - Other specified abnormal findings of blood chemistry Coding Level of Care Code Est Pt Level 3 (08762) Diagnoses Painful thyroid E07.89 LFT elevation R79.89
== END 2023-07-31 16:56 | disposition home or self-care (01) ==
PROVIDERS: PCP Internal Medicine; Visit Provider Internal Medicine
DX: E07.89 Other specified disorders of thyroid (principal); R79.89 Other specified abnormal findings of blood chemistry
CPT/HCPCS: 99213

== ENCOUNTER 2023-08-06 15:43 | Outpatient (REF) | payer OTHER, SELFPAY ==
--- NOTE | ~2023-08-06 | US_ITS ---
EXAMINATION: US THYROID CLINICAL INFORMATION: Other specified disorders of thyroid. COMPARISON: None available. TECHNIQUE: Linear transducer grayscale and color Doppler examination with attention to the region of the thyroid. FINDINGS: SIZE: Measurements of the thyroid lobes and nodules are given in sagittal, anteroposterior and transverse dimensions respectively. Right Thyroid Lobe: 5.5 x 1.6 x 1.5 cm, volume 6.9 mL. Parenchyma: The gland echotexture is heterogeneous. Thyroid vascularity is increased. Left Thyroid Lobe: 5.0 x 2.5 x 2.2 cm, volume 11.5 mL. Parenchyma: The gland echotexture is heterogeneous. Thyroid vascularity is increased. Isthmus: 0.4 cm in maximum AP dimension. Estimated total number of nodules greater than or equal to 1 cm: 0. Refuge Manager nodules are described as follows: 1. Location: Right mid. Size: 0.8 x 0.8 x 0.9 cm, volume 0.3 mL. Nodule characteristics: Composition: Solid (2). Echogenicity: Very hypoechoic (3). Shape: Not taller than wide (0). Margins: Irregular (2). Echogenic Foci: None (0). ACR TI-RADS total points: 7 ACR TI-RADS category: 5 NODES: Multiple small lymph nodes are identified along the inferior aspects of the bilateral thyroid lobes US/US thyroid IMPRESSION: 1. Right 0.9 cm TR5 thyroid nodule. Recommend follow up ultrasound in one year. 2. Diffusely heterogeneous, hypervascular thyroid gland. 3. Multiple small lymph nodes are identified along the inferior aspects of the bilateral thyroid lobes. ACR TI-RADS RECOMMENDATION REFERENCE: Ultrasound-guided fine-needle aspiration, followup ultrasound, no further follow up. * TR1 (0 point) and TR2 (2 points): No FNA or follow up. * TR3 (3 points): FNA if more than or equal to 2.5 cm in maximum dimension, followup ultrasound in 1, 3 and 5 years if 1.5 to 2.4 cm in maximum dimension. * TR4 (4-6 points): FNA if more than or equal to 1.5 cm in maximum dimension, followup ultrasound in 1, 2, 3 and 5 years if 1 to 1.4 cm in maximum dimension. * TR5 (more than or equal to 7 points): FNA if more than or equal to 1 cm in maximum dimension, followup ultrasound every year for 5 years if 0.5 to 0.9 cm in maximum dimension. * TR3, TR4 or TR5 nodules that are below the size threshold for followup receive no follow up.
== END 2023-08-06 15:44 | disposition home or self-care (01) ==
LOC: HO.US 15:43
PROVIDERS: PCP Internal Medicine; Visit Provider Internal Medicine
DX: E07.89 Other specified disorders of thyroid (principal)
CPT/HCPCS: 76536

== ENCOUNTER 2023-10-03 11:29 | Outpatient (REF) | payer OTHER, SELFPAY ==
[2023-10-03 13:09] LABS: Alanine Aminotransferase 15 U/L (0-31); Albumin Level 4.7 g/dL (3.5-5.0); Alkaline Phosphatase 124 U/L (39-117); Anion Gap 14 (12-20); Aspartate Amino Transferase 21 U/L (5-31); Bilirubin Direct 0.1 mg/dL (0.0-0.5); Bilirubin Total 0.5 mg/dL (0.0-1.0); Blood Urea Nitrogen 17 mg/dL (9-16); Carbon Dioxide 27 mmol/L (22-29); Chloride 104 mmol/L (96-108); Estimated Glomerular Filt Rate > 60; Glucose Random 97 mg/dL (60-115); Potassium 4.5 mmol/L (3.3-5.1); Sodium 140 mmol/L (135-145); Total Protein 8.1 g/dL (6.5-8.0)
[2023-10-03 13:12] LABS: TSH reflex Free T4 1.26 uIU/mL (0.32-4.0)
== END 2023-10-03 11:30 | disposition home or self-care (01) ==
LOC: HO.LAB 11:29
PROVIDERS: PCP Internal Medicine; Visit Provider Internal Medicine
DX: E07.89 Other specified disorders of thyroid (principal); R79.89 Other specified abnormal findings of blood chemistry
CPT/HCPCS: 36415; 80053; 82248; 84443

== ENCOUNTER 2024-02-04 14:13 | Outpatient (REF) | payer OTHER, SELFPAY ==
--- NOTE | ~2024-02-04 | US_ITS ---
EXAMINATION: US THYROID CLINICAL INFORMATION: Thyroid nodule, no personal history of thyroid malignancy. No prior biopsy. COMPARISON: 07/07/2023 TECHNIQUE: Linear transducer grayscale and color Doppler examination with attention to the region of the thyroid. FINDINGS: SIZE: Measurements of the thyroid lobes and nodules are given in sagittal, anteroposterior and transverse dimensions respectively. Right Thyroid Lobe: 4.4 x 1.4 x 1.3 cm, volume 4.2 mL. Parenchyma: The gland echotexture is heterogeneous. Thyroid vascularity is increased. Left Thyroid Lobe: 3.8 x 0.8 x 1.0 cm, volume 1.6 mL. Parenchyma: The gland echotexture is heterogeneous. Thyroid vascularity is increased. Isthmus: 0.1 cm in maximum AP dimension. Estimated total number of nodules greater than or equal to 1 cm: 0. 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 Location: Right mid. Size: 0.6 x 0.4 x 0.5 cm, volume 0.06 mL. Previously not measured.. Nodule characteristics: Composition: Solid (2). Echogenicity: Hypoechoic (2). Shape: Not taller than wide (0). Margins: Ill-defined (0). Echogenic Foci: None (0). ACR TI-RADS total points: 4. ACR TI-RADS category: 4. 2. Previously identified 0.9 cm posterior right midpole thyroid nodule is not appreciated on the current exam. NODES: No lymphadenopathy is seen in the tissue surrounding the thyroid gland. US/US thyroid IMPRESSION: 1. Diffusely heterogeneous, hypervascular thyroid gland. 2. Right 0.6 cm thyroid nodule was not previously measured. 3. Previously identified 0.9 cm posterior right midpole thyroid nodule is not appreciated on the current exam. This study was presented today 02/05/2024 for interpretation. Stat results provided at this time as requested by referring provider. ACR TI-RADS RECOMMENDATION REFERENCE: Ultrasound-guided fine-needle aspiration, followup ultrasound, no further follow up. * TR1 (0 point) and TR2 (2 points): No FNA or follow up. * TR3 (3 points): FNA if more than or equal to 2.5 cm in maximum dimension, followup ultrasound in 1, 3 and 5 years if 1.5 to 2.4 cm in maximum dimension. * TR4 (4-6 points): FNA if more than or equal to 1.5 cm in maximum dimension, followup ultrasound in 1, 2, 3 and 5 years if 1 to 1.4 cm in maximum dimension. * TR5 (more than or equal to 7 points): FNA if more than or equal to 1 cm in maximum dimension, followup ultrasound every year for 5 years if 0.5 to 0.9 cm in maximum dimension. * TR3, TR4 or TR5 nodules that are below the size threshold for followup receive no follow up.
== END 2024-02-04 14:14 | disposition home or self-care (01) ==
LOC: HO.US 14:13
PROVIDERS: PCP Internal Medicine; Visit Provider Internal Medicine
DX: E04.1 Nontoxic single thyroid nodule (principal); E07.89 Other specified disorders of thyroid
CPT/HCPCS: 76536

== ENCOUNTER 2024-04-17 08:12 | Outpatient (REF) | payer OTHER, SELFPAY ==
[2024-04-17 09:36] LABS: TSH reflex Free T4 1.14 uIU/mL (0.32-4.0)
== END 2024-04-17 08:13 | disposition home or self-care (01) ==
LOC: HO.LAB 08:12
PROVIDERS: PCP Internal Medicine; Visit Provider Internal Medicine
DX: E04.1 Nontoxic single thyroid nodule (principal)
CPT/HCPCS: 36415; 84443

== ENCOUNTER 2024-06-10 13:34 | Outpatient (REF) | payer OTHER, SELFPAY ==
--- NOTE | ~2024-06-10 | XR_ITS ---
EXAMINATION: XR HAND LEFT 3 VIEWS CLINICAL INFORMATION: Pain in left hand M79.642. COMPARISON: None TECHNIQUE: PA, lateral, and oblique views of the left hand. FINDINGS: There is flexion of the DIP joint of the index finger on all views. Possible mild arthrosis. Joint space difficult to fully assess given the deformity. Remaining bones joints and soft tissues are unremarkable. . XR/XR hand LT min 3V IMPRESSION: 1. Flexion of the DIP joint of the index finger on all views. Possible mild arthrosis. Electronically signed by: Aly Granda MD 08/12/2024 09:59 AM EST
== END 2024-06-10 13:35 | disposition home or self-care (01) ==
LOC: HO.HOSX 13:34
PROVIDERS: Visit Provider Orthopaedic Surgery
DX: M15.1 Heberden's nodes (with arthropathy) (principal)
CPT/HCPCS: 73130

== ENCOUNTER 2024-06-10 13:54 | Outpatient (AMB) | payer OTHER, SELFPAY ==
--- NOTE | 2024-06-10 14:02 | MHC.OFFVIS ---
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 Patient reports burning pain localized at her DIP joint of left index finger. She was born with a shorter finger, has no recent injury. She has a bump on her DIP that she noticed a year ago that has been growing in size. SHe reports the tip of her index finger is also getting crooked. Denies finger locking, numbness and tingling. 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 Denies any prior injuries or surgeries to the left hand. 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 This has been worsening for ~1 year now. This is worse with activity or when bumping her finger, and improves when at rest. Of note, she says that she was born with this finger being smaller than the other fingers. It is fairly recently that the D IP joint has started to look like it was more prominent, with increased angulation of the distal phalanx radially and volarly. She denies any known injury to her finger as a child. She denies any prior treatment options [facility] Medical History Palpitations Postmenopausal PONV (postoperative nausea and vomiting) History of cervical cancer History of endometriosis History of osteopenia Breast lesion on mammography Surgical History History of exploratory laparotomy History of colposcopy Family History Maternal Grandmother History of breast cancer, Onset Age: 70 Maternal Grandfather No problems noted. 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 Cognitive needs: No Hearing needs: No Vision needs: No Female Reproductive History Menstrual Age of Menarche: 14 Review of Systems Const All systems reviewed & are unremarkable except as noted in HPI and below Physical Exam Vital Signs: BMI result Body Mass Index 22.7 Const General: cooperative, healthy appearing and no acute distress Orientation/consciousness: patient oriented x3 HEENT Head: Yes normocephalic and Yes atraumatic Eyes EOM: EOMs intact bilaterally Resp Effort & Inspection: normal respiratory effort and able to speak in complete sentences Cardio Jugular venous distension: no JVD Skin General skin exam: turgor normal Rashes: no rashes Neuro General: patient oriented x3 Extrem Other: Evaluation of Left Upper Extremity: The patient is alert, oriented, and in no acute distress Neuro: Median, Ulnar, Radial nerves motor and sensory intact and sensation is normal to the tips of all digits Vascular: Cap refill brisk ROM: She can make a fist and extend all her digits No locking or catching Skin: No lacerations or abrasions. General: No Ecchymosis. No Erythema or evidence of infection. Regarding her left index finger: The digit is shorter than the adjacent digits, and this appears to be primarily at the distal phalanx but also perhaps at the middle phalanx. She can make a fist and extend all of her digits including the index finger, though she does have a mallet deformity at the D IP joint. At the D IP joint we see volar and radial deviation of a shortened distal phalanx. The nail appears to be well developed. Radiographs: 3 views of the left hand were taken and viewed by me today in clinic. They show no fractures or dislocations. She has significant index finger DIP joint osteoarthritis with near complete loss of joint space. This is radially deviated with a mallet deformity. She has some mild hyperextension at the PIP joint. Her index finger distal phalanx, and perhaps the middle phalanx, are shorter than her other phalanxes. She says she was born this way. 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 Left index finger DIP joint osteoarthritis I educated her about this condition I discussed operative and non-operative treatment options I think she would benefit from a DIP joint arthrodesis in the future She is hesitant to discuss surgery as she is worried about losing her motion or full function of her index finger She should try to limit or avoid overusing this aspect of her finger when possible. I did explain that this is not something that has to happen now. When she is mostly avoiding the use of the tip of her index finger, I noted that it would likely be better to perform the arthrodesis so that she could use it again. Until then she will let us know. She is happy with the current plan. She can follow up prn Scribed for Faina Pratt MD by Giovanny Ramirez, medical dosimetrist, on 06/10/24 at 2:50 PM, EST. 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
[2024-06-10 14:32] VITALS: BMI 22.7
== END 2024-06-10 15:22 | disposition home or self-care (01) ==
PROVIDERS: PCP Internal Medicine; Visit Provider Orthopaedic Surgery
DX: M15.1 Heberden's nodes (with arthropathy) (principal)
CPT/HCPCS: 99203

== ENCOUNTER 2024-07-22 14:44 | Outpatient (REF) | payer OTHER, SELFPAY ==
--- NOTE | ~2024-07-22 | MM_ITS ---
EXAMINATION: MM SCREENING DIGITAL BREAST TOMOSYNTHESIS, BILATERAL CLINICAL INFORMATION: Screening. Asymptomatic. COMPARISON: Mammography: Comparison is made with available priors TECHNIQUE: Digital breast mammography with tomosynthesis is performed in both the craniocaudal and mediolateral oblique views along with computer-aided detection (CAD). FINDINGS: There are scattered areas of fibroglandular density (ACR BI-RADS breast composition Category b). Left excisional biopsy. There are no significant masses, abnormal calcifications, or other abnormalities. MM/MM tomosynthesis screening BI IMPRESSION: No mammographic evidence of malignancy. ASSESSMENT: BI-RADS BI-RADS 2 - Benign Findings RECOMMENDATION: Routine annual mammography screening. 1 year F/U This examination should not preclude the clinical evaluation of a suspicious palpable abnormality. This patient's information was entered into a reminder system with a target due date for their next mammogram. Electronically signed by: Kim Schulz DO 07/31/2024 01:47 PM [facility]
== END 2024-07-22 14:45 | disposition home or self-care (01) ==
LOC: HO.MAMMO 14:44
PROVIDERS: PCP Internal Medicine; Visit Provider Internal Medicine
DX: Z12.31 Encounter for screening mammogram for malignant neoplasm of breast (principal)
CPT/HCPCS: 77063; 77067

== ENCOUNTER → 2024-07-22 15:45 | Outpatient (BNV) | payer OTHER, SELFPAY | PROVIDERS: PCP Internal Medicine; Visit Provider Internal Medicine | DX: Z12.31 Encounter for screening mammogram for malignant neoplasm of breast (principal) | CPT/HCPCS: 77063; 77067 ==

== ENCOUNTER 2024-08-29 13:54 | Outpatient (REF) | payer OTHER, SELFPAY ==
--- NOTE | ~2024-08-29 | US_ITS ---
EXAMINATION: US THYROID CLINICAL INFORMATION: Thyroid nodules COMPARISON: Ultrasound thyroid 08/06/2023 TECHNIQUE: Linear transducer grayscale and color Doppler examination with attention to the region of the thyroid. FINDINGS: SIZE: Measurements of the thyroid lobes and nodules are given in sagittal, anteroposterior and transverse dimensions respectively. Right Thyroid Lobe: 4.7 x 1.2 x 1.4 cm, volume 4.0 mL. Previous 4.4 x 1.4 x 1.3, volume 4.2 Parenchyma: The gland echotexture is homogeneous. Thyroid vascularity is mildly increased. Left Thyroid Lobe: 3.7 x 0.7 x 1.1 cm, volume 1.5 mL. Previous 3.8 x 0.8 x 1.0, volume 1.6 Parenchyma: The gland echotexture is homogeneous. Thyroid vascularity is mildly increased. Isthmus: 0.1 cm in maximum AP dimension. Estimated total number of nodules greater than or equal to 1 cm: 0. There are no new nodule seen at this time. NODES: No lymphadenopathy is seen in the tissue surrounding the thyroid gland. US/US thyroid IMPRESSION: Homogeneous thyroid gland without nodules. Mild increased vascularity of both lobes. Previously visualized nodule in right lobe have resolved. ACR TI-RADS RECOMMENDATION REFERENCE: Ultrasound-guided fine-needle aspiration, followup ultrasound, no further follow up. * TR1 (0 point) and TR2 (2 points): No FNA or follow up. * TR3 (3 points): FNA if more than or equal to 2.5 cm in maximum dimension, followup ultrasound in 1, 3 and 5 years if 1.5 to 2.4 cm in maximum dimension. * TR4 (4-6 points): FNA if more than or equal to 1.5 cm in maximum dimension, followup ultrasound in 1, 2, 3 and 5 years if 1 to 1.4 cm in maximum dimension. * TR5 (more than or equal to 7 points): FNA if more than or equal to 1 cm in maximum dimension, followup ultrasound every year for 5 years if 0.5 to 0.9 cm in maximum dimension. * TR3, TR4 or TR5 nodules that are below the size threshold for followup receive no follow up. Electronically signed by: Luis Mandujano MD 09/01/2024 07:53 AM [facility]
== END 2024-08-29 13:55 | disposition home or self-care (01) ==
LOC: HO.US 13:54
PROVIDERS: PCP Internal Medicine; Visit Provider Internal Medicine
DX: E04.1 Nontoxic single thyroid nodule (principal)
CPT/HCPCS: 76536

== ENCOUNTER → 2024-08-29 14:05 | Outpatient (BNV) | payer OTHER, SELFPAY | PROVIDERS: PCP Internal Medicine; Visit Provider Radiology Diagnostic Radiology | DX: E04.1 Nontoxic single thyroid nodule (principal) | CPT/HCPCS: 76536 ==

== ENCOUNTER 2024-10-08 14:29 | Outpatient (AMB) | payer OTHER, SELFPAY ==
[2024-10-08 14:37] VITALS: BP 128/78; PULSE 91; RESP 18; O2SAT 97; BMI 22.2
--- NOTE | 2024-10-08 14:37 | MHC.PC.OV ---
Vital Signs 10/08/24 14:37 Height 5 ft 4 in Weight 129 lb 8 oz BMI 22.2 BP 128/78 Blood Pressure Location Rt brachial Position Sitting Respiration 18 Pulse 91 Pulse Source Pulse Oximeter Pulse Oximetry (%) 97 Oxygen Delivery Method Room Air Intake Visit Reasons: Annual PE Allergies No Known Allergies Allergy (Verified 10/08/24 14:38) Medication List - Last Reconciled 10/08/24 by Mireya Kuhn MD omeprazole 20 mg PO DAILY Tobacco use date assessed: 10/08/24 Dental Screening Dental Screen Date: 10/08/24 Did you have a dental visit in the last 12 months?: Yes Did you have a dental problem in the last 6 months where you did not have access to dental care?: No Was dental information given to patient?: Patient has dentist HPI Annual PE HPI Details Physical exam appointment - The patient is a 53-year-old female presenting with loose stool. - Loose stools began approximately four weeks ago, without blood, pain, or associated symptoms like bloating. - Prior work-up for similar issues over a decade ago was negative, though irritable bowel syndrome flare-up was considered. - Initial management included fiber and probiotics, with some improvement noted in stool consistency. - Gas production increased, and stool frequency is now twice daily but with firmer stools. - Symptoms persisted post-upper respiratory infection and vacation. Patient has already discussed with Gastroenterology regarding these symptoms Health Maintenance - Mammogram completed in June of the previous year. - OBGYN visit was completed last year (2017), with the next follow-up advised for 2027. - Recent colonoscopy at age 52, repeated in 10 years. 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 - Labs previously showed elevated liver enzymes necessitating repeat blood work. - Thyroid ultrasound showing increased blood flow but improvement in previous findings. 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 - Resume probiotic intake, considering capsule or yogurt form. - Keep a food diary to identify potential triggers for symptoms. - Ensure follow-up with permanent mold supervisor for annual skin checks. - Complete fasting labs as ordered. Review of Systems - General: No fever no chills - Neurological: No headaches no dizziness - Ear nose throat: No sore throat no hearing difficulty no ear pain - Cardiovascular: No syncope, no chest pain, no palpitations - Gastrointestinal: No nausea vomiting - Endocrine: No polyuria polydipsia no heat intolerance - Genitourinary: No dysuria - Skin: No new complaints Physical Exam General: Cooperative, healthy appearing, comfortable, no acute distress Orientation: Patient oriented x3 Limitations: none Head: Normal to inspection Ears: Within normal limit visually Nose: Normal external nose present Face and sinus: Normal facial exam Eyes: Appearance normal, extraocular movement intact pupils reactive Neck: Normal visual inspection and supple Respiratory: Normal respiratory effort and able to speak in complete sentences. Clear to auscultation, no stridor Breast exam benign Cardiovascular: S1 and S2 GI: Normal to inspection. Soft to palpation and nontender Skin: Turgor normal, no acute findings, keratosis removed previously Neuro: Patient oriented x3, motor sensory intact, balance intact, tandem pass Extremities: Normal to inspection PFSH Medical History Palpitations Postmenopausal PONV (postoperative nausea and vomiting) History of cervical cancer History of endometriosis History of osteopenia Breast lesion on mammography Surgical History History of exploratory laparotomy History of colposcopy Family History Maternal Grandmother History of breast cancer, Onset Age: 70 Maternal Grandfather No problems noted. 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 1. Little interest or pleasure in doing things: not at all 2. Feeling down, depressed, or hopeless: not at all 3. Trouble falling or staying asleep, or sleeping too much: nearly every day 4. Feeling tired or having little energy: several days 5. Poor appetite or overeating: not at all 6. Feeling bad about yourself - or that you are a failure or have let yourself or your family down: not at all 7. Trouble concentrating on things, such as reading the newspaper or watching television: not at all 8. Moving or speaking so slowly that other people could have noticed. Or the opposite - being so fidgety or restless that you have been moving around a lot more than usual: not at all 9. Thoughts that you would be better off or of hurting yourself in some way: not at all Total score: 4 Depression Screening Interpretation: Negative Depression Screening Done: Yes 17650 - PHQ-9 Billing: Yes Source: Developed by Drs. Sukhdeep Malhotra, Melissa Cifuentes, Stephen Bran and colleagues, with an educational rosendo from [employer]. Thrive Questionnaire Date Thrive assessed: 10/08/24 I am a: Patient What is your living situation today?: I have a steady place to live Within the past 12 months, did the food you bought not last and you didn't have the money to get more?: Never true Within the past 12 months, did you worry whether your food would run out before you got money to buy more?: Never true Do you have trouble paying for medicines?: No Do you have trouble getting transportation to medical appointments?: No Do you have trouble paying your heating and electricity bill?: No Do you have trouble taking care of your child, family member or friend?: No Do you have trouble with day-to-day activities such as bathing, preparing meals, shopping, managing finances, etc.?: No Are you currently unemployed and looking for a job?: No Are you interested in more education?: No Please select the resources that you would like help with: None Currently or been in a relationship where the following occur: No concerns reported THRIVE Score: 0 AUDIT C Alcohol Use Questionnaire (AUDIT-C) 1. How often do you have a drink containing alcohol?: Never 3. How often do you have six or more drinks on one occasion?: Never Total Score: 0 Score Reviewed/Action Taken: Yes RAISA-7 AMB Questionnaire RAISA-7 Date RAISA - 7 assessed: 10/08/24 Feeling nervous, anxious, or on edge: 0 = Not at all Not being able to stop or control worryin = Not at all Worrying too much about different things: 0 = Not at all Trouble relaxin = Not at all Being so restless that it is hard to sit still: 0 = Not at all Becoming easily annoyed or irritable: 0 = Not at all Feeling afraid as if something awful might happen: 0 = Not at all Total RAISA-7 score (0-4 normal; 5-9 mild; 10-14 moderate; 15-21 severe): 0 Source: Developed by Drs. Sukhdeep Malhotra, Melissa Cifuentes, Stephen Bran and colleagues, with an educational rosendo from [employer]. RAISA-7 Assessment Billing RAISA-7 Assessment Tool: RAISA-7 Assessment 27756 Physical exam (Primary Care) Vital Signs: Last Vital Signs Pulse 91 10/08/24 14:37 Resp 18 10/08/24 14:37 BP 128/78 10/08/24 14:37 Pulse Ox 97 10/08/24 14:37 Oxygen Delivery Method Room Air 10/08/24 14:37 BMI result Body Mass Index 22.2 Tobacco/Smoking Status: Tobacco use Status Tobacco use date assessed 10/08/24 10/08/24 14:39 Patient Tobacco Use Status Never used Tobacco 10/08/24 14:39 e-Cigarette/Vaping Use Never Used 10/08/24 14:39 PHQ-9: PHQ-9 Score PHQ-9: Total score 4 10/08/24 14:54 Depression Screening Interpretation: Negative Thrive Assessment: Date of Thrive Assessment Date Thrive assessed 10/08/24 10/08/24 14:39 Currently or been in a relationship where the following occur: No concerns reported Coding Level of Care Code Est Pt Prev Care 40-64y(62446) Diagnoses Adult general medical exam Z00.00 LFT elevation R79.89 Bloating R14.0 Additional Codes RAISA-7 Assessment Billing - RAISA-7 Assessment Tool: RAISA-7 Assessment 33178 ([id number]) PHQ-9 - 26376 - PHQ-9 Billing: Yes ([id number]) Assessment & Plan Assessment & Plan (1) Adult general medical exam: Code(s): Z00.00 - Encounter for general adult medical examination without abnormal findings Category: Medical (2) LFT elevation: Code(s): R79.89 - Other specified abnormal findings of blood chemistry Category: Medical (3) Bloating: Code(s): R14.0 - Abdominal distension (gaseous) Category: Medical Plan Physical exam appointment - The patient is a 53-year-old female presenting with loose stool. - Loose stools began approximately four weeks ago, without blood, pain, or associated symptoms like bloating. - Prior work-up for similar issues over a decade ago was negative, though irritable bowel syndrome flare-up was considered. - Initial management included fiber and probiotics, with some improvement noted in stool consistency. - Gas production increased, and stool frequency is now twice daily but with firmer stools. - Symptoms persisted post-upper respiratory infection and vacation. Patient has already discussed with Gastroenterology regarding these symptoms Health Maintenance - Mammogram completed in June of the previous year. - OBGYN visit was completed last year (2017), with the next follow-up advised for 2027. - Recent colonoscopy at age 52, repeated in 10 years. 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 - Labs previously showed elevated liver enzymes necessitating repeat blood work. - Thyroid ultrasound showing increased blood flow but improvement in previous findings. 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 - Resume probiotic intake, considering capsule or yogurt form. - Keep a food diary to identify potential triggers for symptoms. - Ensure follow-up with permanent mold supervisor for annual skin checks. - Complete fasting labs as ordered. Orders: Orders Lipid Panel Today R7.89 - Other specified abnormal findings of blood chemistry, Z00.01 - Encounter for general adult medical examination with abnormal findings TSH reflex Free T4 Today R7.89 - Other specified abnormal findings of blood chemistry, Z00.01 - Encounter for general adult medical examination with abnormal findings UA CC w/rflx Micro + Cult Today R7. - Other specified abnormal findings of blood chemistry, Z00.01 - Encounter for general adult medical examination with abnormal findings Complete Blood Count Auto Diff Today R79.89 - Other specified abnormal findings of blood chemistry, Z00.01 - Encounter for general adult medical examination with abnormal findings Comprehensive [place]. Panel Fast Today R79.89 - Other specified abnormal findings of blood chemistry, Z00.01 - Encounter for general adult medical examination with abnormal findings Vitamin D 25-OH (D2 and D3) Today R79.89 - Other specified abnormal findings of blood chemistry, Z00.01 - Encounter for general adult medical examination with abnormal findings
--- OUTSIDE RECORDS SUMMARY | 2024-10-08 15:47 | XMS_ITS | Clinical Summary ---
[facility] Organization [facility] Address [address] [place] [address] Care Team Providers Care Instructional Materials Director Name Role Phone Brittany Alicea MD Primary Care Provider [phone] Allergies No known active allergies Medications No known medications Active Problems Problem Noted Date Diagnosed Date Routine general medical exam ination at a health care facility 09/23/2018 Awareness of heartbeats 09/23/2018 Endometriosis 09/23/2018 Refraction error 09/23/2018 PVC (premature ventricular contraction) 09/23/19 19 Family History Medical History Relation Name Comments COPD Father No Sig Med Hx Mother Relation Name Status Comments Father Alive Mother Alive Social History Tobacco Use Types Packs/Day Years Used Date Smoking Tobacco: Never Smokeless Tobacco: Never Alcohol Use Standard Drinks/Week Comments Yes 0 (1 standard drink = 0.6 oz pur e alcohol) Social Sex and Gender Information Value Date Recorded Sex Assigned at Not on file Gender Identity Not on file Sexual Orientation Not on file Last Filed Vital Signs Vital Sign Reading Time Taken Comments Blood Pressure 120/70 09/23/2018 4:04 PM EST Pulse 70 09/23/2018 4:04 PM EST Temperature 37 ??C (98.6 ??F) 09/23/2018 4:04 PM EST Respiratory Rate 12 09/23/2018 4:04 PM EST Oxygen Saturation 98% 09/23/2018 4:04 PM EST Inhaled Oxygen Concentration - - Weight 60.1 kg (132 lb 6.4 oz) 09/23/2018 4:04 P M EST Height 165.1 cm (5' 5 ) 09/23/2018 4:04 PM EST Body Mass Index 22.03 09/23/2018 4:04 PM EST Plan of Treatment Health Maintenance Due Date Last Done Comments Hepatitis B Vaccines (1 of 3 - 3-dose series) 1972 Hepatitis C Screening 1972 COVID-19 Vaccine (#1) 04/10/1973 Depression Screening 1984 DTap / Tdap / Td (1 - Tdap) 1991 Cervical Cancer Screening (P ap Smear) 1993 Colon Cancer Screening (Colonoscopy) 2017 Preventative Health Evaluation 09/23/2019 09/23/2018 Breast Cancer Screening (Mammogram) 2022 Shingrix-Zoster Vaccine (1 of 2) 2022 Influenza Vaccine (#1) 2024 Pneumococcal Vaccine Aged Out No long er eligible based on patient's age to complete this topic RSV Ped < 20 months Aged Out No longe r eligible based on patient's age to complete this topic Care Teams Instructional Materials Director Relationship Specialty Start Date End Date Brittany Alicea MD PCP - General Internal Medicine 07/12/15
== END 2024-10-08 14:53 | disposition home or self-care (01) ==
PROVIDERS: PCP Internal Medicine; Visit Provider Internal Medicine
DX: Z00.00 Encounter for general adult medical examination without abnormal findings (principal); R79.89 Other specified abnormal findings of blood chemistry; R14.0 Abdominal distension (gaseous); Z00.01 Encounter for general adult medical examination with abnormal findings

== ENCOUNTER → 2024-10-08 14:29 | Outpatient (BNVA) | payer OTHER, SELFPAY | PROVIDERS: PCP Internal Medicine; Visit Provider Internal Medicine | DX: Z00.00 Encounter for general adult medical examination without abnormal findings (principal); R79.89 Other specified abnormal findings of blood chemistry; R14.0 Abdominal distension (gaseous) | CPT/HCPCS: 96127 ==

== ENCOUNTER 2024-11-03 12:38 | Outpatient (REF) | payer OTHER, SELFPAY ==
[2024-11-03 15:15] LABS: MANUAL DIFF FLAG NO
[2024-11-03 15:55] LABS: Basophils Percent Auto 0.5 % (0-2); Eosinophils Absolute Auto 0.1 X10*3/uL (0.0-0.4); Eosinophils Percent Auto 1.7 % (0-4); Hematocrit 37.4 % (37.0-47.0); Hemoglobin 12.5 g/dl (12.0-16.0); Imm Gran Abs Auto 0.05 X10*3/uL (0.00-0.03); Imm Gran Pct Auto 0.9 % (0.0-0.4); Lymphocytes Absolute Auto 1.8 X10*3/uL (1.2-4.9); Lymphocytes Percent Auto 30.3 % (20-40); Mean Corpuscular HGB Conc 33.4 g/dl (31.0-35.0); Mean Corpuscular Hemoglobin 30.7 pg (27.0-33.0); Mean Corpuscular Volume 91.9 fL (80.0-98.0); Mean Platelet Volume 9.4 fL (9.4-12.3); Monocytes Absolute Auto 0.6 X10*3/uL (0.1-1.2); Monocytes Percent Auto 10.7 % (2-11); Neutrophils Absolute Auto 3.2 x10*3/uL (2.0-8.3); Neutrophils Percent Auto 55.9 % (45-73); Platelet Count 346 X10*3/uL (160-400); Red Blood Count 4.07 X10*6/uL (4.20-5.50); White Blood Count 5.8 X10*3/uL (4.8-10.8)
[2024-11-03 15:57] LABS: Appearance Urine Clear; Color Urine Yellow; Glucose Urine UA Negative (Negative); Leukocyte Esterase Urine Negative (Negative); Nitrite Urine Negative (Negative); Urine Blood Negative (Negative); Urine Ketones Negative (Negative); Urine Protein Negative (Neg-Trace)
[2024-11-03 15:58] LABS: Prothrombin Time 11.9 SEC (10.9-12.4)
[2024-11-03 16:36] LABS: Gamma Glutamyl Transpeptidase 16 U/L (7-33)
--- OUTSIDE RECORDS SUMMARY | 2024-11-03 16:44 | XMS_ITS | Clinical Summary ---
[facility] Address [address] [place] [address] Care Team Providers Care Beauty Counselor Name Role Phone Brittany Alicea MD Primary Care Provider [phone] Allergies No known active allergies Medications No [...] age to complete this topic Care Teams Beauty Counselor Relationship Specialty Start Date End Date Brittany Alicea MD PCP - General Internal Medicine 07/12/15
[2024-11-03 17:25] LABS: Alanine Aminotransferase 28 U/L (0-31); Albumin Level 4.6 g/dL (3.5-5.0); Alkaline Phosphatase 96 U/L (39-117); Anion Gap 12 (12-20); Aspartate Amino Transferase 27 U/L (5-31); Bilirubin Total 0.4 mg/dL (0.0-1.0); Blood Urea Nitrogen 29 mg/dL (9-16); C Reactive Protein < 0.10 mg/dL (< or = 0.50); Calcium 9.6 mg/dL (8.4-10.2); Carbon Dioxide 26 mmol/L (22-29); Chloride 109 mmol/L (96-108); Cholesterol 239 mg/dL (<200); Estimated Glomerular Filt Rate > 60; Glucose Fasting 91 mg/dL (60-99); Glucose Random 91 mg/dL (60-115); HDL Cholesterol 70 mg/dL (>40); LDL Cholesterol Calculated 149 mg/dL (<100); Potassium 3.7 mmol/L (3.3-5.1); Sodium 143 mmol/L (135-145); Total Protein 7.9 g/dL (6.5-8.0); Triglycerides 102 mg/dL (<150)
[2024-11-03 17:30] LABS: TSH reflex Free T4 1.39 uIU/mL (0.32-4.0)
[2024-11-04 07:14] LABS: Immunoglobulin A 200 mg/dL (47-310); Immunoglobulin G 965 mg/dL (600-1640)
[2024-11-04 08:30] LABS: HBS Num1 72.03 mIU/mL (0-7.99); HBc Num1 0.08 S/CO (0.00-0.79); HBsAGNum1 0.28 S/CO (0.00-0.99); HIV AB/AG Nonreactive (Nonreactive); HIV Num 1 0.06 S/CO (0.00-0.99); Hepatitis B Core Antibody Nonreactive (Nonreactive); Hepatitis B Surface Antigen Negative (Negative); ~HepC Num1 0.16 S/CO (0.00-0.79); ~Hepatitis B Surface Antibody REACTIVE (Nonreactive); ~Hepatitis C Antibody Nonreactive (Nonreactive)
[2024-11-04 17:48] LABS: Transglutaminase IgA <1.0 U/mL
[2024-11-05 03:49] LABS: Hepatitis A Antibody IgG Nonreactive (Nonreactive); ~Hepatitis A Antibody IgG 0.27 S/CO (0.00-0.99)
[2024-11-05 10:29] LABS: Mitochondrial Antibodies NEGATIVE (NEGATIVE)
[2024-11-05 23:19] LABS: Smooth Muscle Antibody <20 U (<20)
[2024-11-06 05:58] LABS: Alk.Phos Iso. Macrohepatic 0 % (<=0); Alk.Phos Isoenzymes Bone 40 % (28-66); Alk.Phos Isoenzymes Intest 13 % (1-24); Alk.Phos Isoenzymes Liver 47 % (25-69); Alk.Phos Isoenzymes Placental 0 % (<=0); Alk.Phos Isoenzymes Total 84 U/L (37-153)
[2024-11-06 12:08] LABS: Liver Kidney Microsomal Ab <=20.0 U (<=20.0)
[2024-11-06 23:28] LABS: Vitamin D 25-OH, D2 <4 ng/mL; Vitamin D 25-OH, D3 32 ng/mL; Vitamin D 25-OH, Total 32 ng/mL (30-100)
[2024-11-07 13:33] LABS: Anti Nuclear Antibody Pattern Nuclear, Homogeneous; Anti Nuclear Antibody Screen POSITIVE (NEGATIVE); Anti Nuclear Antibody Titer 1:40 titer
== END 2024-11-03 12:39 | disposition home or self-care (01) ==
LOC: HO.LAB 12:38
PROVIDERS: PCP Internal Medicine; Visit Provider Internal Medicine
DX: Z00.01 Encounter for general adult medical examination with abnormal findings (principal); K52.9 Noninfective gastroenteritis and colitis, unspecified; R74.8 Abnormal levels of other serum enzymes; R79.89 Other specified abnormal findings of blood chemistry; Z79.01 Long term (current) use of anticoagulants
CPT/HCPCS: 36415; 80053; 80061; 81003; 82306; 82784; 82977; 84080; 84443; 85025; 85610; 86015; 86038; 86039; 86140; 86364; 86376; 86381; 86704; 86706; 86708; 86803; 87340; 87389

== ENCOUNTER 2024-11-04 12:40 | Outpatient (REF) | payer OTHER, SELFPAY ==
[2024-11-04 14:34] LABS: CDiff Gene PCR NEGATIVE (Negative)
--- OUTSIDE RECORDS SUMMARY | 2024-11-04 15:11 | XMS_ITS | Clinical Summary ---
Author Organization [facility] Address [address] [place] [address] Care Team Providers Care Education Department Chair Name Role Phone Brittany Alicea MD Primary Care Provider [phone] Allergies No known active allergies Medications No [...] age to complete this topic Care Teams Education Department Chair Relationship Specialty Start Date End Date Brittany Alicea MD PCP - General Internal Medicine 07/12/15
[2024-11-10 23:44] LABS: Fecal Fat Qualitative Abnormal (Normal)
[2024-11-11 19:09] LABS: Calprotectin, Fecal 24 mcg/g
[2024-11-11 20:28] LABS: Pancreatic Elastase-1 >800 mcg/g (>200)
== END 2024-11-04 12:41 | disposition home or self-care (01) ==
LOC: HO.LNP 12:40
PROVIDERS: Visit Provider Internal Medicine
DX: K52.9 Noninfective gastroenteritis and colitis, unspecified (principal); R74.8 Abnormal levels of other serum enzymes
CPT/HCPCS: 82656; 82705; 83993; 87015; 87177; 87209; 87272; 87329; 87493

== ENCOUNTER 2024-11-21 14:41 | Emergency (ER) | payer OTHER, SELFPAY ==
[2024-11-21 14:52] VITALS: BP 136/88; PULSE 86; RESP 18; TEMP 36.8; O2SAT 99; BMI 21.8
--- NOTE | 2024-11-21 15:55 | ED.GENADULT ---
HPI - General Adult General Chief complaint: General Medical Stated complaint: reaction to meds Time Seen by Provider: 11/21/24 15:13 Source: patient Mode of arrival: ambulatory Limitations: no limitations History of Present Illness ED Provider: Froylan Clark [facility] narrative: 54 yold female healthy with pmh of SBOA presents to the ED for skin turning red for the past 2 days while taking bactrim. Patient is on bactrim for SBOA. patient denies redness being itchy, lip swelling, tongue swelling, or dizziness. Patient states having bodyches with the redness. Patient was sent from PCP to rule out Rasta's Gurjitson. Patient denies rash on vagina or sloughing of skin Related Data Home Medications ?Medication ?Instructions ?Recorded ?Confirmed omeprazole 20 mg tablet,delayed 20 mg PO DAILY 07/06/23 10/08/24 release Previous Rx's ?Medication ?Instructions ?Recorded rifaximin 550 mg tablet 550 mg PO TID 14 days #42 tabs 10/29/24 sulfamethoxazole 800 1 tab PO BID 10 days #20 tabs 11/12/24 mg-trimethoprim 160 mg tablet (Bactrim DS) doxycycline hyclate 100 mg capsule 100 mg PO BID 7 days #14 caps 11/21/24 Allergies Allergy/AdvReac Type Severity Reaction Status Date / Time No Known Allergies Allergy Verified 11/21/24 14:56 Review of Systems Review of Systems: red rash Yes all other systems are reviewed and are negative PMF Past Medical History Medical History Palpitations Postmenopausal PONV (postoperative nausea and vomiting) History of cervical cancer History of endometriosis History of osteopenia Breast lesion on mammography Surgical History History of exploratory laparotomy History of colposcopy Family History Family History Maternal Grandmother History of breast cancer, Onset Age: 70 Maternal Grandfather No problems noted. Other Substance use disorder Social History Social History Housing: House Are you a primary care clinician to a significant other at home: No Do you presently have visiting nurse or other home services: No Alcohol intake: current Alcohol intake frequency: a few times a week Patient Tobacco Use Status: Never used Tobacco Smoked in Last 30 Days: No e-Cigarette/Vaping Use: Never Used Use of substances other than those prescribed or required for medical reasons: Yes Substance Use Type: Marijuana Substance Use Frequency: Occasionally Advance Directives: No Advance Directives Information Provided: Yes Patient : No Current occupational status: employed 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 Negative for any lip swelling, tongue swelling, drooling, or uvula swelling. Head: Yes normal to inspection, Yes No palpable skull fracture present, Yes normocephalic and Yes atraumatic Head images: 1. slight redness. negative for lesions, sloughing, warmth, or ecchymosis. 2. slight redness. negative for lesions, sloughing, warmth, or ecchymosis. Eyes General: appearance normal, both eyes and all related structures Visual Capps: normal visual capps by confrontation Alignment and Position: alignment normal Periorbital: periorbital findings normal Eyelids: Yes eyelids normal Conjunctivae: conjunctivae normal Sclerae: sclerae normal Corneas: corneas normal Pupils: Equal, round and reactive pupils present EOM: EOMs intact bilaterally Neck Neck: Yes normal visual inspection, Yes full ROM, Yes no lymphadenopathy, Yes no meningeal signs, Yes trachea midline, Yes supple, No anterior neck swelling and No tender Neck images: 1. red flat rash. no lesions or sloughing of skin Chest Chest palpation & inspection: normal inspection of the chest Chest/axillae images: 1. flat red rash. Negative for any lesions or sloughing. Resp Effort & Inspection: normal respiratory effort and able to speak in complete sentences Auscultation: clear to auscultation bilaterally Cardio Jugular venous distension: no JVD Heart sounds: S1 normal heart sound present and S2 normal heart sound present GI Inspection: Yes normal to inspection Palpation (GI): Soft to palpation, not firm, nontender, no guarding and not rigid General: Yes no CVA tenderness Back/Spine/Pelvis Back: no CVA tenderness and No back tenderness Skin General skin exam: no rashes or lesions noted, elasticity normal and turgor normal Neuro General: patient oriented x3, gait normal, tone normal, moves all extremities, Normal light touch and pain sensation, no meningeal signs, no focal motor deficits, CN's II-XI intact bilaterally and normal sensation to monofilament Cranial nerves: Yes Equal, round and reactive pupils present Extrem General: Yes normal to inspection, Yes full ROM and Yes capillary refill normal Shoulder/upper arm images: 1. Positive for red rash negative. negative for sloughing or lesions 2. Positive for red rash negative. negative for sloughing or lesions Psych Appearance: grossly normal, well kempt and not disheveled Medical Decision Making Medical Decision Making MDM Narrative: 54-year-old female presents to ED for red rash on arms face neck and upper back. Patient denies any rash will lesions in her vaginal or anal area. Patient labs ordered. Dr. Beasley evaluated patient and states patient is not having rasta Poncho Syndrome. 5:02pm: Patient labs was unremarkable. labs do not indicate polymyositits. Dr. Beasley recommend patient being treated as lympe and given doxycycline. He does not recommend given steroids. Patient informed to follow up with primary care provider. NOt suspecting allergic reaction, anyphylaxix, rasta Poncho, cellulitis, lymphagintis, necrotiing fascitits, or any other concerning symptoms. Differential Diagnosis Differential Diagnoses: The differential diagnosis associated with the presentation includes (Polymyositis, hives, Uticaria) Admission/Observation Consideration of admission/observation: Escalation of care including admission/observation considered Lab Data [facility] Lab Attestation statement: I reviewed the patient's lab results. 11/21/24 16:03 11/21/24 16:03 Labs: Lab Results 11/21/24 Range/Units 16:03 WBC 2.9 L (4.8-10.8) X10*3/uL RBC 4.10 L (4.20-5.50) X10*6/uL Hgb 12.6 (12.0-16.0) g/dl Hct 37.4 (37.0-47.0) % MCV 91.2 (80.0-98.0) fL MCH 30.7 (27.0-33.0) pg MCHC 33.7 (31.0-35.0) g/dl RDW 13.2 (11.0-16.0) % Plt Count 210 D (160-400) X10*3/uL MPV 9.5 (9.4-12.3) fL Immature Gran % (Auto) 0.4 (0.0-0.4) % Neut % (Auto) 39.6 L (45-73) % Lymph % (Auto) 33.7 (20-40) % Garrett % (Auto) 16.1 H (2-11) % Eos % (Auto) 9.8 H (0-4) % Baso % (Auto) 0.4 (0-2) % Lymph # (Auto) 1.0 L (1.2-4.9) X10*3/uL Garrett # (Auto) 0.5 (0.1-1.2) X10*3/uL Eos # (Auto) 0.3 (0.0-0.4) X10*3/uL Baso # (Auto) 0.0 (0.0-0.2) X10*3/uL Abs Immat Gran (auto) 0.01 (0.00-0.03) X10*3/uL Absolute Neuts (auto) 1.1 L (2.0-8.3) x10*3/uL Absolute Nucleated RBC 0.000 (0.0-0.012) X10*3/uL Nucleated RBC % (auto) 0.0 (0.0-0.2) /100WBC ESR 11 (0-20) MM/HR Sodium 137 (135-145) mmol/L Potassium 4.2 (3.3-5.1) mmol/L Chloride 105 (96-108) mmol/L Carbon Dioxide 24 (22-29) mmol/L Anion Gap 12 (12-20) BUN 20 H (9-16) mg/dL Creatinine 0.94 (0.5-1.4) mg/dL Estim Creat Clear Calc 60.4 Estimated GFR > 60 Random Glucose 88 (60-115) mg/dL Calcium 9.2 (8.4-10.2) mg/dL Total Bilirubin 0.3 (0.0-1.0) mg/dL AST 42 H (5-31) U/L ALT 32 H (0-31) U/L Alkaline Phosphatase 87 (39-117) U/L Total Creatine Kinase 43 (26-140) U/L C-Reactive Protein 0.46 (< or = 0.50) mg/dL Total Protein 7.3 (6.5-8.0) g/dL Albumin 4.4 (3.5-5.0) g/dL A.phagocytophil DNA PCR NOT DETECTED (NOT DETECTED) Babesia microti DNA PCR NOT DETECTED (NOT DETECTED) Borrelia sp DNA (PCR) NOT DETECTED (NOT DETECTED) Borrelia miyamotoi (PCR) NOT DETECTED (NOT DETECTED) E.chaffeensis DNA (PCR) NOT DETECTED (NOT DETECTED) Monoscreen Negative (Negative) Tick-borne Disease PCR SEE NOTE Independent Historian Clinical information obtained from an independent historian. History obtained from or confirmed by: Other External Record Review External record reviewed: Other Discharge Plan Discharge Clinical Impression: Rash Patient Disposition: Home, Self-Care Instructions: Acute Rash (ED) Additional Instructions: Recommend follow-up with the primary care provider and support services manager. History physical exam does not indicate Rasta Poncho syndrome. Your tick labs are pending. You will be discharged with doxycycline. Stop taking Bactrim. Return to the ED immediately for any worsening rash, sloughing of rash, lip swelling, tongue swelling, sensation of throat swelling, fever, chills, or any other concerning symptoms. Prescriptions: New doxycycline hyclate 100 mg capsule 100 mg PO BID 7 Days Qty: 14 0RF No Action rifaximin 550 mg tablet 550 mg PO TID 14 Days Qty: 42 0RF sulfamethoxazole-trimethoprim [Bactrim DS] 800-160 mg tablet 1 tab PO BID 10 Days Qty: 20 0RF omeprazole 20 mg tablet,delayed release (DR/EC) 20 mg PO DAILY Referrals: Mireya Kuhn MD [Primary Care Provider] - (Acute rash.) Stand Alone Forms: Work/School Release Interventions: ED Discharge Assessment Last Done: 11/21/24 18:39 Discharge Date/Time: 11/21/24 18:41 Print Language: Prydeinig
[2024-11-21 16:12] LABS: MANUAL DIFF FLAG NO
[2024-11-21 16:16] LABS: Basophils Percent Auto 0.4 % (0-2); Eosinophils Absolute Auto 0.3 X10*3/uL (0.0-0.4); Eosinophils Percent Auto 9.8 % (0-4); Hematocrit 37.4 % (37.0-47.0); Hemoglobin 12.6 g/dl (12.0-16.0); Imm Gran Abs Auto 0.01 X10*3/uL (0.00-0.03); Imm Gran Pct Auto 0.4 % (0.0-0.4); Lymphocytes Percent Auto 33.7 % (20-40); Mean Corpuscular HGB Conc 33.7 g/dl (31.0-35.0); Mean Corpuscular Hemoglobin 30.7 pg (27.0-33.0); Mean Corpuscular Volume 91.2 fL (80.0-98.0); Mean Platelet Volume 9.5 fL (9.4-12.3); Monocytes Absolute Auto 0.5 X10*3/uL (0.1-1.2); Monocytes Percent Auto 16.1 % (2-11); Neutrophils Absolute Auto 1.1 x10*3/uL (2.0-8.3); Neutrophils Percent Auto 39.6 % (45-73); Platelet Count 210 X10*3/uL (160-400); Red Cell Distribution Width 13.2 % (11.0-16.0); White Blood Count 2.9 X10*3/uL (4.8-10.8)
[2024-11-21 16:33] LABS: Alanine Aminotransferase 32 U/L (0-31); Albumin Level 4.4 g/dL (3.5-5.0); Anion Gap 12 (12-20); Aspartate Amino Transferase 42 U/L (5-31); Bilirubin Total 0.3 mg/dL (0.0-1.0); Blood Urea Nitrogen 20 mg/dL (9-16); C Reactive Protein 0.46 mg/dL (< or = 0.50); Calcium 9.2 mg/dL (8.4-10.2); Carbon Dioxide 24 mmol/L (22-29); Chloride 105 mmol/L (96-108); Creatinine Clr Calc Pharmacy 60.4; Estimated Glomerular Filt Rate > 60; Glucose Random 88 mg/dL (60-115); Potassium 4.2 mmol/L (3.3-5.1); Sodium 137 mmol/L (135-145); Total Protein 7.3 g/dL (6.5-8.0)
[2024-11-21 16:43] LABS: Monotest Negative (Negative)
[2024-11-21 16:51] LABS: Erythrocyte Sedimentation Rate 11 MM/HR (0-20)
[2024-11-21 16:57] LABS: Alkaline Phosphatase 87 U/L (39-117)
[2024-11-21 17:37] VITALS: BP 123/72; PULSE 74; RESP 16; TEMP 36.8; O2SAT 100
[2024-11-21 18:39] VITALS: BP 123/72; PULSE 74; RESP 16; TEMP 36.8; O2SAT 100
[2024-11-22 18:58] LABS: A. Phagocytphilium DNA,RT-PCR NOT DETECTED (NOT DETECTED); Babesia Microti DNA, RT-PCR NOT DETECTED (NOT DETECTED); Borrelia Miyamotoi,DNA RT-PCR NOT DETECTED (NOT DETECTED); E.Chaffeensis DNA RT-PCR NOT DETECTED (NOT DETECTED); Lyme(Borrelia ssp)DNA RT-PCR NOT DETECTED (NOT DETECTED)
[2024-11-24 21:42] LABS: Lyme Abs Screen <0.90 index
== END 2024-11-21 18:41 | disposition home or self-care (01) ==
PROVIDERS: Physician Assistant; Emergency Provider Emergency Medicine; PCP Internal Medicine
DX: R21 Rash and other nonspecific skin eruption (principal); M79.10 Myalgia, unspecified site; Z79.899 Other long term (current) drug therapy
CPT/HCPCS: 36415; 80053; 82550; 85025; 85652; 86140; 86308; 86617; 86618; 87040; 87468; 87469; 87478; 87484; 87798; 99283; 99284

== ENCOUNTER 2024-11-28 14:03 | Outpatient (REF) | payer OTHER, SELFPAY ==
--- NOTE | ~2024-11-28 | US_ITS ---
CLINICAL HISTORY: R74.8 - Abnormal levels of other serum enzymes US abdomen complete Comparison: None Findings: The visualized pancreas is normal. The aorta and inferior vena cava are normal caliber. The appearance of the liver suggests fatty infiltration without focal lesion. There is no intrahepatic bile duct dilatation. The common duct is 3.0 mm in diameter. The gallbladder is normal. There is no sonographic Moya sign. The main portal vein is antegrade. The right kidney is 10.5 cm in length. The left kidney is 10.9 cm in length. The spleen is normal. No ascites. IMPRESSION: 1. Hepatic steatosis. This document has been electronically signed by: Cosmo Davalos MD on 11/29/2024 08:16:32
--- OUTSIDE RECORDS SUMMARY | 2024-11-28 15:49 | XMS_ITS | Clinical Summary ---
[facility] Organization [facility] Address [address] [place] [address] Care Team Providers Care Developer Analyst Name Role Phone Brittany Alicea MD Primary Care Provider [phone] Allergies No known active allergies Medications No [...] age to complete this topic Care Teams Developer Analyst Relationship Specialty Start Date End Date Brittany Alicea MD PCP - General Internal Medicine 07/12/15
== END 2024-11-28 14:04 | disposition home or self-care (01) ==
LOC: HO.US 14:03
PROVIDERS: PCP Internal Medicine; Visit Provider Internal Medicine
DX: R74.8 Abnormal levels of other serum enzymes (principal)
CPT/HCPCS: 76700

== ENCOUNTER → 2024-11-28 14:04 | Outpatient (BNV) | payer OTHER, SELFPAY | PROVIDERS: PCP Internal Medicine; Visit Provider Specialist | DX: R74.8 Abnormal levels of other serum enzymes (principal) | CPT/HCPCS: 76700 ==

== ENCOUNTER 2024-12-19 14:37 | Outpatient (AMB) | payer OTHER, SELFPAY ==
--- NOTE | 2024-12-19 14:46 | A.OFFVIS_ITS ---
Vital Signs 12/19/24 14:50 Height 5 ft 4 in Weight 126 lb 5.198 oz BMI 21.7 BP 125/69 Blood Pressure Location Lt brachial Position Sitting Pulse 67 Intake Visit Reasons: F/U labs 4 weeks Intake Note: presents in the office as a follow up for her lab work. CC: She states that she is just doing the follow up for her loose stools. She is not having them as bad at they were in Aug and has gotten better the last couple weeks. Venetian Blind Washer Required: No Allergies sulfamethoxazole [From Bactrim] Allergy (Mild, Verified 12/19/24 14:49) flu like symptoms trimethoprim [From Bactrim] Allergy (Mild, Verified 12/19/24 14:49) flu like symptoms HPI Comments Details: 54 y. F with PMH of who is here for new visit for changes in bowel habits. Pt reports intermittent diarrhea since August which got worse after visit to [place]. Has 3 BMs per day durng the day. No night time. With this has increased borborygmi, early satiety and bloating. No trigger foods identified. Tried probotics and yogurt which has not helped as much. Labs reviewed. Elevated ALP noted. No fatigue, joint pains, no pruritus. 12/19/24: Sx better now. Having occ crampy abd pain assoc with soft BM up to 2-3 times a day. Was given trial of bactrim but pt had s/e of flu like sx with concern for SJS. Resolved rapidly with discontinuation of bactrim. Currnetly has 1-2 BMs which are soft. No blood in stool. Assoc with abd cramping which goes away with defecation. Prev was having sx almost daily but now better as above. Labs reviewed, neg for inflammatory or parasitic source. LFTs were checked on Bactrim so suspect drug related. ALP is now normal and ALP fractionation normal as well. [facility] Medical History Palpitations Postmenopausal PONV (postoperative nausea and vomiting) History of cervical cancer History of endometriosis History of osteopenia Breast lesion on mammography Surgical History History of exploratory laparotomy History of colposcopy Family History Maternal Grandmother History of breast cancer, Onset Age: 70 Maternal Grandfather No problems noted. 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 Cognitive needs: No Hearing needs: No Vision needs: No Female Reproductive History Menstrual Age of Menarche: 14 Review of Systems Const All systems reviewed & are unremarkable except as noted in HPI and below Physical Exam Vital Signs: Last Vital Signs Pulse 67 12/19/24 14:50 BP 125/69 12/19/24 14:50 BMI result Body Mass Index 21.7 No apparent distress Nonicteric Abdomen soft, nondistended Alert and oriented x3, normal gait Assessment & Plan Assessment & Plan (1) Chronic diarrhea: Code(s): K52.9 - Noninfective gastroenteritis and colitis, unspecified Category: Medical (2) Bloating: Code(s): R14.0 - Abdominal distension (gaseous) Category: Medical (3) Abdominal cramping: Code(s): R10.9 - Unspecified abdominal pain Category: Medical (4) LFT elevation: Code(s): R79.89 - Other specified abnormal findings of blood chemistry Category: Medical (5) Osteopenia: Code(s): M85.80 - Other specified disorders of bone density and structure, unspecified site Category: Medical Plan 1. 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 However, will proceed with bidirectional scope to r/o enteropathy, seronegative celiac (yoli as pt also with hx of thyroiditis, low Vit D etc), microscopic colitis, new dx of IBD. Plan: - EGD/colo to be booked - PEG prep sent to pharmacy - Pt well versed in colo instructions but handout provided anyway 2. Transaminases likely transient 2/2 bactrim use as were completely normal right beofre starting this med US with fatty liver noted which could be overestimation vs transient appearance due to recent etoH intake over vacation 3. Pt with known osteopenia x many years. Plan: - Repeat dexa - check vit D Follow up after scopes Orders: Orders XR DEXA axial skeleton Today M85.80 - Other specified disorders of bone density and structure, unspecified site Liver Panel Today R79.89 - Other specified abnormal findings of blood chemistry Vitamin D 25-OH Total Today M85.80 - Other specified disorders of bone density and structure, unspecified site Medications: New peg 3350-electrolytes 236-22.74-6.74 -5.86 gram (Golytely) as per split prep instructions, until fecal effluent is clear 240 mL PO Q10M 4,000 mL 0RF colonoscopy Coding Level of Care Code Est Pt Level 4 (79014) Diagnoses Chronic diarrhea K52.9 Bloating R14.0 Abdominal cramping R10.9 LFT elevation R79.89 Osteopenia M85.80
[2024-12-19 14:50] VITALS: BP 125/69; PULSE 67; BMI 21.7
--- OUTSIDE RECORDS SUMMARY | 2024-12-19 15:16 | XMS_ITS | Clinical Summary ---
[facility] Address [address] [place] [address] Care Team Providers Care General Operations Manager Name Role Phone Brittany Alicea MD Primary Care Provider [phone] Allergies No known active allergies Medications No [...] age to complete this topic Care Teams General Operations Manager Relationship Specialty Start Date End Date Brittany Alicea MD PCP - General Internal Medicine 07/12/15
== END 2024-12-19 18:04 ==
LOC: HO.HGI 14:37
PROVIDERS: PCP Internal Medicine; Visit Provider Internal Medicine
DX: K52.9 Noninfective gastroenteritis and colitis, unspecified (principal); R14.0 Abdominal distension (gaseous); R10.9 Unspecified abdominal pain; R79.89 Other specified abnormal findings of blood chemistry; M85.80 Other specified disorders of bone density and structure, unspecified site
CPT/HCPCS: 99214

== ENCOUNTER 2024-12-24 06:51 | Outpatient (REF) | payer OTHER, SELFPAY ==
[2024-12-24 07:52] LABS: Alanine Aminotransferase 29 U/L (0-31); Albumin Level 4.6 g/dL (3.5-5.0); Alkaline Phosphatase 104 U/L (39-117); Aspartate Amino Transferase 29 U/L (5-31); Bilirubin Direct 0.2 mg/dL (0.0-0.5); Bilirubin Total 0.6 mg/dL (0.0-1.0); Total Protein 7.4 g/dL (6.5-8.0)
== END 2024-12-24 06:52 | disposition home or self-care (01) ==
LOC: HO.LAB 06:51
PROVIDERS: PCP Internal Medicine; Visit Provider Internal Medicine
DX: M85.80 Other specified disorders of bone density and structure, unspecified site (principal); R79.89 Other specified abnormal findings of blood chemistry
CPT/HCPCS: 36415; 80076; 82306

== ENCOUNTER 2025-02-06 09:28 | Day surgery (SDC) | payer OTHER, SELFPAY ==
[2025-02-04 14:55] VITALS: BMI 21.7
[2025-02-06 09:51] VITALS: BP 132/57; PULSE 62; RESP 16; TEMP 36.4; O2SAT 100
[2025-02-06] MEDS: Lactated Ringers 1,000 ML 100 ML IVCONT (09:55)
--- NOTE | 2025-02-06 10:06 | HO.ANESPROP2 ---
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 (Acute) Cervical lymphadenopathy (Acute) Thyroid nodule (Acute) Thyromegaly (Acute) Painful thyroid (Acute) Neck pain (Acute) LFT elevation (Acute) Serum potassium elevated (Acute) Colon cancer screening (Acute) Encounter for general adult medical examination with abnormal findings (Acute) Hot flash, menopausal (Acute) Menopause (Acute) Breast lesion on mammography (Acute) Palpitations (Acute) History of osteopenia (Acute) Postmenopausal (Acute) Past Medical History Medical History PAC (premature atrial contraction) PVC (premature ventricular contraction) Viral thyroiditis Palpitations Postmenopausal PONV (postoperative nausea and vomiting) History of cervical cancer History of endometriosis History of osteopenia Family History Family History Maternal Grandmother History of breast cancer, Onset Age: 70 Maternal Grandfather No problems noted. Other Substance use disorder Family history of problems with anesthesia: No Surgical History Surgical History (Updated 02/06/25 @ 09:33 by Scooter North RN) History of esophagogastroduodenoscopy (EGD) Hx of breast biopsy H/O colonoscopy History of exploratory laparotomy History of colposcopy History of Problems with Anesthesia: Yes Social History Social History Housing: House Are you a primary home health caregiver to a significant other at home: No Do you presently have visiting nurse or other home services: No Alcohol intake: current Alcohol intake frequency: a few times a week Patient Tobacco Use Status: Never used Tobacco e-Cigarette/Vaping Use: Never Used Use of substances other than those prescribed or required for medical reasons: Yes Substance Use Type: Marijuana Have you been hit, kicked, punched, or otherwise hurt by someone within the past year? 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 Cognitive needs: No Hearing needs: No Vision needs: No Meds Allergies Allergy/AdvReac Type Severity Reaction Status Date / Time sulfamethoxazole Allergy Mild flu like Verified 12/19/24 14:49 [From Bactrim] symptoms trimethoprim [From Bactrim] Allergy Mild flu like Verified 12/19/24 14:49 symptoms Home Medications ?Medication ?Instructions ?Recorded ?Confirmed ?Last Taken ?Type turmeric root extract 150 1 tab PO DAILY 12/19/24 02/04/25 01/30/25 History mg-jose root extract 25 mg chewable tablet Exam Height,Weight and Vital Signs: Height 5 ft 4 in Weight 57.3 kg Assessment and Plan Assessment Anesthesia Assessment: Chart Reviewed Final Anesthetic Review Family History of Problems with Anesthesia: No History of Problems with Anesthesia: Yes Documented by User: Tiffany Johnston DO 02/06/25 10:07 [facility] Past Medical History Medical History PAC (premature atrial contraction) PVC (premature ventricular contraction) Viral thyroiditis Palpitations Postmenopausal PONV (postoperative nausea and vomiting) History of cervical cancer History of endometriosis History of osteopenia Family History Family History Maternal Grandmother History of breast cancer, Onset Age: 70 Maternal Grandfather No problems noted. Other Substance use disorder Family history of problems with anesthesia: No Surgical History Surgical History (Updated 02/06/25 @ 09:33 by Scooter North RN) History of esophagogastroduodenoscopy (EGD) Hx of breast biopsy H/O colonoscopy History of exploratory laparotomy History of colposcopy History of Problems with Anesthesia: No Social History Social History Housing: House Are you a primary home health caregiver to a significant other at home: No Do you presently have visiting nurse or other home services: No Alcohol intake: current Alcohol intake frequency: a few times a week Patient Tobacco Use Status: Never used Tobacco e-Cigarette/Vaping Use: Never Used Use of substances other than those prescribed or required for medical reasons: Yes Substance Use Type: Marijuana Have you been hit, kicked, punched, or otherwise hurt by someone within the past year? 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 Cognitive needs: No Hearing needs: No Vision needs: No Meds Allergies Allergy/AdvReac Type Severity Reaction Status Date / Time sulfamethoxazole Allergy Mild flu like Verified 12/19/24 14:49 [From Bactrim] symptoms trimethoprim [From Bactrim] Allergy Mild flu like Verified 12/19/24 14:49 symptoms Home Medications ?Medication ?Instructions ?Recorded ?Confirmed ?Last Taken ?Type turmeric root extract 150 1 tab PO DAILY 12/19/24 02/04/25 01/30/25 History mg-jose root extract 25 mg chewable tablet Exam Exam Date and Time: 02/06/25 1005 Height,Weight and Vital Signs: Height 5 ft 4 in Weight 57.3 kg Vital Signs Temperature 97.6 F 02/06/25 09:51 Pulse Rate 62 02/06/25 09:51 Respiratory Rate 16 02/06/25 09:51 Blood Pressure 132/57 L 02/06/25 09:51 Pulse Oximetry 100 02/06/25 09:51 Oxygen Delivery Method Room Air 02/06/25 09:51 Temperature 97.6 F 02/06/25 09:51 Pulse Rate 62 02/06/25 09:51 Respiratory Rate 16 02/06/25 09:51 Blood Pressure 132/57 L 02/06/25 09:51 Pulse Oximetry 100 02/06/25 09:51 Oxygen Delivery Method Room Air 02/06/25 09:51 Airway Mallampati Class: I TM Dist: >3cm Neck ROM: Full Loose/Missing/Broken Teeth: No (patient denies any loose or broken teeth) Heart: S1S2 Lungs: CTAB Assessment and Plan Assessment Anesthesia Assessment: Anesthesia Plan Discussed and Chart Reviewed Final Anesthetic Review Family History of Problems with Anesthesia: No History of Problems with Anesthesia: No NPO: Yes ASA Class: II Final Preanesthetic Review: No Changes in Pt Med Stat, Meds/Allgs Chart Reviewed, Consent Obtained/Reviewed and Anes Risks/Benef Reviewed Patient Risk: Low Procedure Risk: Low Anesthetic Plan Anesthetic Plan: MAC: and Agree w/ Assess. and Plan Disposition: Standard PACU
--- NOTE | 2025-02-06 10:48 | MHC.SHP ---
Pre-Procedural Eval Section A - 24 Hr Update-Section A only Date of Service: 02/06/25 Section B - Complete if H&P > 30 days Chief Complaint: Noninfective gastroenteritis and colitis, unspecif Details of Present Illness: Palpitations Postmenopausal PONV (postoperative nausea and vomiting) History of cervical cancer History of endometriosis History of osteopenia Breast lesion on mammography Surgical History History of exploratory laparotomy History of colposcopy Present Medications: see Short Stay Collaborative assessment Allergies: Allergies Allergy/AdvReac Type Severity Reaction Status Date / Time sulfamethoxazole Allergy Mild flu like Verified 12/19/24 14:49 [From Bactrim] symptoms trimethoprim [From Bactrim] Allergy Mild flu like Verified 12/19/24 14:49 symptoms Review of Systems Review of Systems Comment: Ten point ROS negative Exam Exam Comment: Gen appear: No acute distress HEENT: no icterus Chest: No overt resp distress Abd: soft, nontender, nondistended Psych: Stable affect, answering questions appropriately Neuro: A/Ox3 noted to move all extremities spontaneously Ext: no peripheral edema Plan Diagnosis/Plan: Unchanged I have reviewed the history and physical and performed a pertinent physical examination on my patient. No changes have occurred unless specified. Time Spent With Patient Time: Total time managing care of this patient today ____ minutes.
--- NOTE | 2025-02-06 11:22 | P.OPN-COLO_ITS ---
Colonoscopy Operative Note Operative Note Date of Service: 02/06/25 Narrative: Procedure: Upper endoscopy and colonoscopy Indication: Change in bowel habits Endoscopist: Lacy Santos MD Anesthesia Provider: Anesthesia type: MAC Instrument: [id number] and [id number] EGD Procedure:?? The procedure, indications, preparation and potential complications were reviewed with the patient, who indicated understanding and gave written informed consent to proceed. The endoscope was introduced through the mouth, and advanced to the 2nd part of the duodenum. The mucosa was carefully examined on slow withdrawal of the endoscope. The patient tolerated the procedure well. There were no immediate complications.? EGD Findings:? * Esophagus:? Normal esophageal mucosa was noted. The Z-line was at 37 cm and displaced upwards by a small hiatal hernia with diaphragmatic pinch at 40 cm. Cold forceps biopsies were taken from middle and lower esophagus to rule out eosinophilic esophagitis. * Stomach:? Erythema and erosions in the body of the stomach. Retroflexion was performed in the cardia that showed Hill grade 2 hiatal hernia. Random cold forceps biopsies were taken from the stomach. * Duodenum:? Normal duodenal mucosa. Cold forceps biopsies were taken from the duodenal bulb and 2nd portion of the duodenum to rule out celiac sprue. Colonoscopy Procedure:? The patient was then turned for the colonoscopy. A digital rectal exam was performed which was normal.? A distal attachment cap was affixed to the tip of the scope and the colonoscope was then inserted through the anus and advanced through the colon and advanced to the cecum at 75 cm and terminal ileum.? Appendiceal orifice and ileocecal valve were identified. Mucosa was carefully examined under high definition white light as the instrument was slowly withdrawn in a retrograde panoramic fashion. Retroflexion was performed in rectum. The procedure was not difficult. The quality of the prep was BBPS: 3+3+2 = adequate Withdrawal time 8 minutes Limitations: No limitations Findings: Mucosa: Normal colon and terminal ileum mucosa. Cold forceps biopsies were taken from the right and left side of the colon to rule out microscopic colitis. Protruding lesions: * Medium internal hemorrhoids without stigmata of recent bleeding. Excavated lesions: * Mild diverticulosis of the left colon was noted Impression: 1. Normal esophagus (biopsy) 2. Gastritis (biopsy) 3. Hiatal hernia 4. Normal duodenum (biopsy) 5. Normal colon and terminal ileum mucosa (biopsy) 6. Diverticulosis 7. Internal hemorrhoids Recommendations:?? * Follow-up path results * Avoid NSAIDs * H Pylori treatment if biopsies + * Start omeprazole 20 mg once daily x 8-12 weeks * Repeat colonoscopy for CRC screening in 10 years.
[2025-02-06 11:24] VITALS: BP 114/67; PULSE 82; RESP 16; TEMP 36.3; O2SAT 98
[2025-02-06 11:39] VITALS: BP 144/95; PULSE 72; RESP 20; TEMP 36.8; O2SAT 100
== END 2025-02-06 12:30 | disposition home or self-care (01) ==
PROVIDERS: PCP Internal Medicine; Visit Provider Internal Medicine
PROC: (CPT 45380; principal; 2025-02-06 10:30)
DX: R19.4 Change in bowel habit (principal); K52.9 Noninfective gastroenteritis and colitis, unspecified; K57.30 Diverticulosis of large intestine without perforation or abscess without bleeding; K64.8 Other hemorrhoids; R10.9 Unspecified abdominal pain; K29.50 Unspecified chronic gastritis without bleeding; K44.9 Diaphragmatic hernia without obstruction or gangrene; R14.0 Abdominal distension (gaseous); R68.81 Early satiety; R00.2 Palpitations; R79.89 Other specified abnormal findings of blood chemistry; M85.80 Other specified disorders of bone density and structure, unspecified site; Z85.41 Personal history of malignant neoplasm of cervix uteri; Z79.899 Other long term (current) drug therapy; Z88.2 Allergy status to sulfonamides; Z98.890 Other specified postprocedural states
CPT/HCPCS: 45380; 43239; 88305; 88313; 88342; J2003; J2704

== ENCOUNTER → 2025-02-06 09:28 | Outpatient (BNV) | payer OTHER, SELFPAY | PROVIDERS: PCP Internal Medicine; Visit Provider Internal Medicine | DX: R19.4 Change in bowel habit (principal) | CPT/HCPCS: 43235; 45380 ==

== ENCOUNTER 2025-03-04 14:22 | Outpatient (REF) | payer OTHER, SELFPAY ==
--- NOTE | ~2025-03-04 | MM_ITS ---
EXAMINATION: DXA BONE DENSITY AXIAL HISTORY: M85.80 - Other specified disorders of bone density and structure TECHNIQUE: [employer] Dual energy absorptiometry (DEXA) of the lumbar spine, total left hip, and femoral neck was performed. COMPARISON: Comparison is made with the prior examination dated 02/25/2019.. FINDINGS: The bone mineral density of the lumbar spine is 1.005 g/cm2, corresponding to a T-score of -1.4, and a Z-score of -0.6. This is indicative of osteopenia. This represents a BMD change of -8.6% compared to the prior exam. This is statistically significant. The bone mineral density of the left total hip is 0.784 g/cm2, corresponding to a T-score of -1.8, and a Z-score of -1.1. This is indicative of osteopenia. This represents a BMD change of 8.7% compared to the prior exam. This is statistically significant. The bone mineral density of the left femoral neck is 0.822 g/cm2, corresponding to a T-score of -1.6, and a Z-score of -0.5. This is indicative of osteopenia. This represents a BMD change of 8.9% compared to the prior exam. FRACTURE RISK: The FRAX index suggests a ten year probability of major osteoporotic fracture of 5.3%, and of hip fracture 0.5%. MM/XR DEXA axial skeleton IMPRESSION: Based on bone mineral density, and according to World Health Organization (WHO) criteria, the diagnosis is consistent with osteopenia. Statistically, 68% of repeat scans fall within 1 SD (+/- 0.010 g/cm2 for AP spine L1-L4) and 1 SD (+/- 0.012 g/cm2 for femur total) FRAX is a trademark of the [employer]'s [place] [employer] Met[employer] Bone Disease, a World Health Organization (WHO) Collaborating Center. Electronically signed by: Sukhdeep Domingo MD 03/04/2025 02:52 PM EDT
== END 2025-03-04 14:23 | disposition home or self-care (01) ==
LOC: HO.MAMMO 14:22
PROVIDERS: PCP Internal Medicine; Visit Provider Internal Medicine
DX: M85.80 Other specified disorders of bone density and structure, unspecified site (principal)
CPT/HCPCS: 77080

== ENCOUNTER → 2025-03-04 14:30 | Outpatient (BNV) | payer OTHER, SELFPAY | PROVIDERS: PCP Internal Medicine; Visit Provider Radiology Diagnostic Radiology | DX: E28.39 Other primary ovarian failure (principal) | CPT/HCPCS: 77080 ==

== ENCOUNTER 2025-07-28 14:05 | Outpatient (REF) | payer OTHER, SELFPAY ==
--- NOTE | ~2025-07-28 | MM_ITS ---
EXAMINATION: MM SCREENING DIGITAL BREAST TOMOSYNTHESIS, BILATERAL CLINICAL INFORMATION: Screening. Asymptomatic. COMPARISON: Mammography: Comparison is made with available priors TECHNIQUE: Digital breast mammography with tomosynthesis is performed in both the craniocaudal and mediolateral oblique views along with computer-aided detection (CAD). FINDINGS: There are scattered areas of fibroglandular density. Left excisional biopsy. There are no significant masses, abnormal calcifications, or other abnormalities. MM/MM tomosynthesis screening BI IMPRESSION: No mammographic evidence of malignancy. ASSESSMENT: BI-RADS Category 2: Benign RECOMMENDATION: Routine annual mammography screening. 1 year F/U This examination should not preclude the clinical evaluation of a suspicious palpable abnormality. This patient's information was entered into a reminder system with a target due date for their next mammogram. Electronically signed by: Kim Schulz DO 07/31/2025 08:02 AM [email or web address]
--- OUTSIDE RECORDS SUMMARY | 2025-07-28 16:05 | XMS_ITS | Clinical Summary ---
Author Organization [facility] Address [address] [place] [address] Phone Care Team Providers Care Build And Deployment Engineer Name Role Phone Mireya Kuhn MD Primary Care Provider [phone] Allergies No known active allergies Medications DENTA 5000 PLUS 1.1 % Crea Use as directed 1 Application in the mouth or throat nightly at bedtime. 4 Active Active Problems Problem Noted Date Diagnosed Date Gastroesophageal reflux disease 03/22/2024 Assessment & Plan (03/22/2024 10:28 AM EDT): Patient reports new onset of reflux symptoms over the past couple of months. This could potentially explain the sensation in her throat. -Consider evaluation and treatment for GERD. Menopausal and postmenopausal disorder Assessment & Plan (03/22/2024 10:29 AM EDT): Patient is post-menopausal -LMP age 44/no HRT-and experiencing hot flashes that are affecting her sleep. She has not been on hormone replacement therapy. 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 Thyroid nodule 09/25/2023 Assessment & Plan (03/22/2024 10:27 AM EDT): Originally presented with sore throat and tenderness in the left side of the thyroid. Ultrasound in 06/2023 reported a 9mm TI-RADS 5 nodule in the right mid/posterior lobe indicating a high risk of malignancy of 35%. However, recent ultrasound in 01/2024 showed no evidence of the previously identified nodule, but a newly measured 6mm nodule in the right mid lobe was noted. The patient has been experiencing a sensation of something being stuck in the left side of her throat for the past two months. -Plan to repeat ultrasound in six months to monitor the new nodule. -Consider further evaluation of swallowing mechanism if symptoms persist or worsen in view of her GERD symptoms within the last few months. Assessment & Plan (09/25/2023 9:35 AM EST): Patient had a thyroid ultrasound on 08/06/2023 reporting a right mid 9 mm TI- RADS 5 nodule with a risk of malignancy 35%. The thyroid was normal in size, diffusely heterogeneous and hypervascular and multiple small lymph nodes were noted along the inferior aspect of the thyroid bilaterally. Ultrasound done because of sore throat and worsening right-sided than left-sided neck pain from early June especially with swallowing. Her TSH level was low normal 0.51 on 07/16/2023. Previous TSH level 0.81 in 10/2018. ESR was not available. The tenderness in the thyroid bed resolved by mid July spontaneously. Today's exam is normal. Patient has no history of radiation exposure to the head and neck and no family history of thyroid disease. We discussed that considering her symptoms in June it is possible that she had an episode of thyroiditis. The small thyroid nodule is high risk and I would recommend to repeat her ultrasound in 6 months. We also decided to repeat thyroid function tests and check ESR as well as thyroid antibodies. She had elevated potassium level with normal renal function and elevated alkaline phosphatase on previous labs in June. I added a CMP to repeat these as well. Painful thyroid 09/25/2023 Assessment & Plan (03/22/2024 10:31 AM EDT): See above. Patient likely had an episode of thyroiditis in the fall 2022. Continue to monitor her thyroid ultrasound and thyroid function. Reviewed symptoms of hypo and hyperthyroidism, patient to call if concern. Assessment & Plan (09/25/2023 9:35 AM EST): See above Family History Medical History Relation Comments Peripheral Arterial Disease Father Stomach cancer Maternal Grandfather Atrial fibrillation Maternal Grandmother Breast cancer Maternal Grandmother Leukemia Maternal Grandmother No Known Problems Mother Relation Status Comments Father Alive Maternal Grandfather Maternal Grandmother Mother Alive Paternal Grandfather Paternal Grandmother Social History Tobacco Use Types Packs/Day Years Used Date Smoking Tobacco: Never Passive Smoke Exposure: Never Smokeless Tobacco: Never Tobacco Cessation:Counseling Given: No Alcohol Use Standard Drinks/Week Comments Yes 1 (1 standard drink = 0.6 oz pur e alcohol) 2 times per week Education Answer Date Recorded Are you interested in more education? Not on anca e 08/14/2023 Are you concerned about learning? Not on file 08/14/2023 No 08/14/2023 No 08/14/2023 Digital Access Answer Date Recorded No 08/14/2023 No 08/14/2023 Reliable internet access at home? Not on file 08/14/2023 Device with a working camera? Not on file Comments Unknown Sex and Gender Information Value Date Recorded Sex Assigned at Not on file Legal Sex Female 3:10 PM EST Gender Identity Not on file Sexual Orientation Not on file Last Filed Vital Signs Vital Sign Reading Time Taken Comments Blood Pressure 110/76 02/27/2024 3:49 PM EDT Pulse 66 02/27/2024 3:49 PM EDT Temperature 36.7 C (98.1 F) 09/25/2023 8:07 AM EST Respiratory Rate - - Oxygen Saturation 99% 02/27/2024 3:49 PM EDT Inhaled Oxygen Concentration - - Weight 58.9 kg (129 lb 12.8 oz) 02/27/2024 3:49 PM EDT Height 162.6 cm (5' 4 ) 02/27/2024 3:49 PM EDT Body Mass Index 22.28 02/27/2024 3:49 PM EDT Plan of Treatment Health Maintenance Due Date Last Done Comments Adult Td,Tdap Booster 1972 LIPID PANEL 1972 DEPRESSION SCREENING 1984 HEPATITIS C SCREENING 1990 HIV ONE-TIME SCREENING (18-6 5 YEARS) 1990 PAP SMEAR 1993 MAMMOGRAM 2012 COLOGUARD 2017 COLONOSCOPY 2017 COLORECTAL CANCER SCREENING 2017 FIT TEST 2017 FOBT 2017 SIGMOIDOSCOPY 2017 VIRTUAL COLONOSCOPY 2017 PNEUMOCOCCAL VACCINES (50+ y ears) (1 of 1 - PCV) 2022 ZOSTER VACCINES (1 of 2) 2022 INFLUENZA VACCINE (#1) 2025 COVID-19 VACCINE (1 - 2024-2 6 season) 2025 RSV VACCINE (1 - 1-dose 75+ series) 2047 SMOKING STATUS SCREENING (On ce After 26 Yrs) Completed 02/27/2024 HEPATITIS A VACCINES Aged Out No long er eligible based on patient's age to complete this topic HIB VACCINES Aged Out No longer eligi ble based on patient's age to complete this topic MENINGOCOCCAL VACCINES (ACWY) Aged Out No longer eligible based on patient's age to complete this topic MENINGOCOCCAL VACCINES (B) Aged Out N o longer eligible based on patient's age to complete this topic Medical Devices Not on file Insurance [employer] B[employer] [facility] [employer] Care Teams Build And Deployment Engineer Relationship Specialty Start Date End Date Mireya Kuhn MD [address] [place] [address] PCP - General Internal Medicine 08/13/23 Additional Source Comments The information contained in this document represents components of the legal health record. It is not the complete legal health record.[facility]
--- OUTSIDE RECORDS SUMMARY | 2025-07-28 16:05 | XMS_ITS | Clinical Summary ---
Author Organization [facility] Address [address] [place] [address] Care Team Providers Care City Carrier Assistant Name Role Phone Brittany Alicea MD Primary Care Provider [phone] Allergies No known active allergies Medications No [...] 70 09/23/2018 4:04 PM EST Temperature 37 C (98.6 F) 09/23/2018 4:04 PM EST Respiratory Rate 12 [...] (1 of 2) 2022 Influenza Vaccine (#1) 2025 Pneumococcal Vaccine Aged Out No long er eligible based on patient's age to complete this topic RSV Ped < 20 months Aged Out No longe r eligible based on patient's age to complete this topic Care Teams City Carrier Assistant Relationship Specialty Start Date End Date Brittany Alicea MD PCP - General Internal Medicine 07/12/15
== END 2025-07-28 14:06 | disposition home or self-care (01) ==
LOC: HO.MAMMO 14:05
PROVIDERS: PCP Internal Medicine; Visit Provider Internal Medicine
DX: Z12.31 Encounter for screening mammogram for malignant neoplasm of breast (principal)
CPT/HCPCS: 77063; 77067

== ENCOUNTER → 2025-07-28 15:30 | Outpatient (BNV) | payer OTHER, SELFPAY | PROVIDERS: PCP Internal Medicine; Visit Provider Internal Medicine | DX: Z12.31 Encounter for screening mammogram for malignant neoplasm of breast (principal) | CPT/HCPCS: 77063; 77067 ==